=== PATIENT | female | born 1950 | race Caucasian/White ===

== ENCOUNTER 2016-10-30 08:32 | Emergency (ER) | payer OTHER ==
[~2016-10-30] VITALS: Ht 162.6 cm; Wt 45.0 kg
[2016-10-30] VITALS (7 sets, daily range): BP systolic 154–194; BP diastolic 75–93; PULSE 74–91; RESP 13–24; TEMP 97.5; O2SAT 96–99
[2016-10-30 09:24] LABS: BASOPHIL # 0.1 TH/MM3 (0-0.2); BASOPHIL % 0.6 % (0.0-2.0); EOSINOPHIL # 0.1 TH/MM3 (0-0.4); EOSINOPHIL % 0.5 % (0.0-4.0); HEMATOCRIT 44.1 % (35.0-46.0); HEMO FLAGS DIFF FINAL; LYMPH % 10.8 % (9.0-44.0); LYMPHOCYTE # 1.2 TH/MM3 (1.0-4.8); MEAN CELL VOLUME 89.6 FL (80.0-100.0); MEAN CORPUSCULAR HEMOGLOBIN 30.4 PG (27.0-34.0); MEAN CORPUSCULAR HGB CONC 33.9 % (32.0-36.0); MONO % 4.4 % (0.0-8.0); NEUT % 83.7 % (16.0-70.0); PLATELET COUNT 307 TH/MM3 (150-450); RED BLOOD COUNT 4.92 MIL/MM3 (4.00-5.30); RED CELL DISTRIBUTION WIDTH 13.4 % (11.6-17.2); WHITE BLOOD COUNT 10.8 TH/MM3 (4.0-11.0)
[2016-10-30 09:34] LABS: BACTERIA, URINE RARE /hpf; BLOOD, URINE SMALL (NEG); COMMENT (UR) CULT NOT INDICATED; CULTURE IF INDICATED CULT NOT INDICATED; GLUCOSE,URINE NEG (NEG); KETONE, URINE TRACE mg/dL (NEG); NITRITE,URINE NEG (NEG); PH, URINE 6.5 (5.0-8.5); SQUAMOUS EPITHELIAL CELL URINE 5 /hpf (0-5); URINE COLOR YELLOW (YELLW/STRAW)
[2016-10-30 09:49] LABS: ANION GAP 7 MEQ/L (5-15); AST (GOT) 21 U/L (15-37); BICARBONATE 28.6 MEQ/L (21.0-32.0); BLOOD UREA NITROGEN 7 MG/DL (7-18); CHLORIDE 97 MEQ/L (98-107); GLOMERULAR FILTRATION RATE 116 ML/MIN (>89); POTASSIUM 4.1 MEQ/L (3.5-5.1); SODIUM (NA) 133 MEQ/L (136-145)
[2016-10-30 09:51] LABS: ALT (GPT) 21 U/L (10-53)
[2016-10-30 09:52] LABS: ALKALINE PHOSPHATASE 72 U/L (45-117); TOTAL BILIRUBIN ADULT 0.4 MG/DL (0.2-1.0)
--- NOTE | 2016-10-30 10:11 | PD ---
HPI Chief Complaint: GI Complaint Time Seen by Provider: 10:03 Travel History International Travel<30 days: No Contact w/Intl Traveler<30days: No Traveled to known affect area: No History of Present Illness HPI PATIENT WOKE UP TODAY FEELING NAUSEA, NONRADIATING, CRAMPY ABD PAIN, 9/10, DIARRHEA, DIFFUSE ABD PAIN, NO ALLEVIATING/ AGGRAVATING FACTORS. PFSH Past Medical History Medical History: Denies Significant Hx Diminished Hearing: No ?: Not : 2 Para: 1 Miscarriage: 1 Past Surgical History Surgical History: No Previous Surgery Social History Alcohol Use: Yes (a few beers daily) Tobacco Use: Yes (1/2 ppd) Substance Use: No Allergies-Medications (Allergen,Severity, Reaction): Coded Allergies: No Known Allergies (Unverified , 10/30/16) Reported Meds & Prescriptions Reported Meds & Active Scripts Active Zofran Odt (Ondansetron Odt) 4 Mg Tab 4 Mg SL Q6HR PRN Percocet (Oxycodone-Acetaminophen) 5-325 mg Tab 1 Tab PO Q6H PRN Flagyl (Metronidazole) 500 Mg Tab 500 Mg PO TID Ciprofloxacin (Ciprofloxacin HCl) 500 Mg Tab 500 Mg PO BID Review of Systems Except as stated in HPI: all other systems reviewed are Neg Gastrointestinal: Positive: Nausea, Abdominal Pain Physical Exam Narrative GENERAL: SKIN: Warm and dry. HEAD: Atraumatic. Normocephalic. EYES: Pupils equal and round. No scleral icterus. No injection or drainage. ENT: No nasal bleeding or discharge. Mucous membranes pink and moist. NECK: Trachea midline. No JVD. CARDIOVASCULAR: Regular rate and rhythm. RESPIRATORY: No accessory muscle use. Clear to auscultation. Breath sounds equal bilaterally. GASTROINTESTINAL: Abdomen soft, DIFFUSELY TTP, nondistended, NO REBOUND/GUARDING /RIGIDITY MUSCULOSKELETAL: Extremities without clubbing, cyanosis, or edema. No obvious deformities. NEUROLOGICAL: Awake and alert. No obvious cranial nerve deficits. Motor grossly within normal limits. Five out of 5 muscle strength in the arms and legs. Normal speech. PSYCHIATRIC: Appropriate mood and affect; insight and judgment normal. Data Data Last Documented VS Vital Signs Date Time Temp Pulse Resp B/P (MAP) Pulse Ox O2 Delivery O2 Flow Rate FiO2 10/30/16 13:22 91 22 178/77 (110) 96 Room Air 10/30/16 08:35 97.5 Orders Orders Complete Blood Count With Diff (10/30/16 08:37) Comprehensive Metabolic Panel (10/30/16 08:37) Urinalysis - C+S If Indicated (10/30/16 08:37) Iv Access Insert/Monitor (10/30/16 08:37) Lipase (10/30/16 08:37) Ct Abd/Pel W/O Iv Contrast (10/30/16 10:03) Ondansetron Inj (Zofran Inj) (10/30/16 10:15) Hydromorphone Pf Inj (Dilaudid Pf Inj) (10/30/16 10:15) Oral Rehydration (10/30/16 12:42) Metronidazole (Flagyl) (10/30/16 13:00) Levofloxacin (Levaquin) (10/30/16 13:00) Hydromorphone Pf Inj (Dilaudid Pf Inj) (10/30/16 13:00) Ondansetron Inj (Zofran Inj) (10/30/16 13:00) Labs Laboratory Tests Test 10/30/16 08:50 10/30/16 08:54 Urine Color YELLOW Urine Turbidity HAZY Urine pH 6.5 Urine Specific [place] 1.018 Urine Protein 30 mg/dL Urine Glucose (UA) NEG mg/dL Urine Ketones TRACE mg/dL Urine Occult Blood SMALL Urine Nitrite NEG Urine Bilirubin NEG Urine Urobilinogen LESS THAN 2.0 MG/DL Urine Leukocyte Esterase TRACE Urine RBC 2 /hpf Urine WBC 3 /hpf Urine Squamous Epithelial Cells 5 /hpf Urine Bacteria RARE /hpf Microscopic Urinalysis Comment CULT NOT INDICATED White Blood Count 10.8 TH/MM3 Red Blood Count 4.92 MIL/MM3 Hemoglobin 14.9 GM/DL Hematocrit 44.1 % Mean Corpuscular Volume 89.6 FL Mean Corpuscular Hemoglobin 30.4 PG Mean Corpuscular Hemoglobin Concent 33.9 % Red Cell Distribution Width 13.4 % Platelet Count 307 TH/MM3 Mean Platelet Volume 7.7 FL Neutrophils (%) (Auto) 83.7 % Lymphocytes (%) (Auto) 10.8 % Monocytes (%) (Auto) 4.4 % Eosinophils (%) (Auto) 0.5 % Basophils (%) (Auto) 0.6 % Neutrophils # (Auto) 9.0 TH/MM3 Lymphocytes # (Auto) 1.2 TH/MM3 Monocytes # (Auto) 0.5 TH/MM3 Eosinophils # (Auto) 0.1 TH/MM3 Basophils # (Auto) 0.1 TH/MM3 CBC Comment DIFF FINAL Differential Comment Blood Urea Nitrogen 7 MG/DL Creatinine 0.53 MG/DL Random Glucose 148 MG/DL Total Protein 7.6 GM/DL Albumin 4.0 GM/DL Calcium Level 9.3 MG/DL Alkaline Phosphatase 72 U/L Aspartate Amino Transf (AST/SGOT) 21 U/L Alanine Aminotransferase (ALT/SGPT) 21 U/L Total Bilirubin 0.4 MG/DL Sodium Level 133 MEQ/L Potassium Level 4.1 MEQ/L Chloride Level 97 MEQ/L Carbon Dioxide Level 28.6 MEQ/L Anion Gap 7 MEQ/L Estimat Glomerular Filtration Rate 116 ML/MIN Lipase 173 U/L [facility] Medical Decision Making Medical Screen Exam Complete: Yes Emergency Medical Condition: Yes Medical Record Reviewed: Yes Differential Diagnosis APPY V UTI V ENTERITIS Narrative Course PATIENT FOUND TO HAVE NO LEUKOCYTOSIS BUT NEUTROPHILIA, ALSO HAS NL ELECTROLYTES /RENAL AND LIVER ACTIVITY...CT SUGGEST ENTERITIS WITH MILD ILEUS , PT TOLERATED PO CHALLENGE WILL D/C HOME ON PO ABX Diagnosis Primary Impression: Bacterial gastroenteritis Patient Instructions: Enteritis (ED), General Instructions Scripts Ondansetron Odt (Zofran Odt) 4 Mg Tab 4 MG SL Q6HR Y for Nausea/Vomiting, #20 TAB 0 Refills Prov: Javier Toribio MD 10/30/16 Oxycodone-Acetaminophen (Percocet) 5-325 mg Tab 1 TAB PO Q6H Y for PAIN, #12 TAB 0 Refills Prov: Javier Toribio MD 10/30/16 Metronidazole (Flagyl) 500 Mg Tab 500 MG PO TID for Infection, #21 TAB 0 Refills Prov: Javier Toribio MD 10/30/16 Ciprofloxacin (Ciprofloxacin) 500 Mg Tab 500 MG PO BID for Infection, #14 TAB 0 Refills Prov: Javier Toribio MD 10/30/16 Disposition: 01 DISCHARGE HOME Condition: Stable Javier Toribio MD Oct 30, 2016 10:11
[2016-10-30] MEDS ORDERED: ONDANSETRON HCL 4 MG/2 ML VIAL IVP ONE (10:15)
[2016-10-30] MEDS ORDERED: HYDROmorphone HCL PF 1 MG/ML VIAL IVS ONE (10:15)
--- NOTE | 2016-10-30 11:20 | RADRPT ---
EXAM DATE/TIME: 10/30/2016 11:04 [facility] COMPARISON: No previous studies available for comparison. INDICATIONS : Abdomen pain. ORAL CONTRAST: No oral contrast ingested. RADIATION DOSE: 4.50 CTDIvol (mGy) MEDICAL HISTORY : None SURGICAL HISTORY : None. ENCOUNTER: Initial ACUITY: 1 day PAIN SCALE: 10/10 LOCATION: Bilateral abdomen. TECHNIQUE: Volumetric scanning of the abdomen and pelvis was performed. Using automated exposure control and ad justment of the mA and/or kV according to patient size, radiation dose was kept as low as reasonably achievable to obtain optimal diagnostic quality images. DICOM format image data is available electro nically for review and comparison. FINDINGS: LOWER LUNGS: The visualized lower lungs are clear. LIVER: Homogeneous density without lesion. There is no dilation of the biliary tree. No calcified gallston es. SPLEEN: Normal size without lesion. PANCREAS: Within normal limits. KIDNEYS: Normal in size and shape. There is no mass, stone, or hydronephrosis. ADRENAL GLANDS: Mild prominence left adrenal gland. VASCULAR: There is no aortic aneurysm. BOWEL/MESENTERY: There are some dilated fluid-filled small bowel loops in the anterior abdomen. There are some slight inflammatory changes in the right lower quadrant however the appendix appears normal and contains air . There is minimal fluid in the pelvis. Diverticulosis of the sigmoid colon. ABDOMINAL WALL: Within normal limits. RETROPERITONEUM: There is no lymphadenopathy. BLADDER: No wall thickening or mass. REPRODUCTIVE: Within normal limits. INGUINAL: There is no lymphadenopathy or hernia. MUSCULOSKELETAL: Within normal limits for patient age. CONCLUSION: 1. There are some inflammatory changes the right lower quadrant however the appendix appears normal. Some dilated small bowel loops are seen anteriorly, early obstruction is in the differential. 2. Diverticulosis of the sigmoid colon. 3. Small amount of pelvic free fluid. Luis E Robin MD on October 30, 2016 at 11:13 Board Certified Radiologist. This report was verified electronically.
[2016-10-30] MEDS ORDERED: CIPR500T2 PO (12:53)
[2016-10-30] MEDS ORDERED: ZOFR4TAB3 SL (12:53)
[2016-10-30] MEDS ORDERED: PERC5TAB12 PO (12:53)
[2016-10-30] MEDS ORDERED: METR-1 PO (12:53)
[2016-10-30] MEDS ORDERED: ONDANSETRON HCL 4 MG/2 ML VIAL IV PUSH ONE (13:00)
[2016-10-30] MEDS ORDERED: metroNIDAZOLE 500 MG TAB PO ONE (13:00)
[2016-10-30] MEDS ORDERED: HYDROmorphone HCL PF 1 MG/ML VIAL IV PUSH ONE (13:00)
[2016-10-30] MEDS ORDERED: LEVOFLOXACIN 500 MG TAB PO ONE (13:00)
[2016-10-30] MEDS ORDERED: CODE30TA2 PO (15:01)
== END 2016-10-30 15:12 | disposition home or self-care (01) ==
LOC: NEPD 08:32
DX: A04.9 Bacterial intestinal infection, unspecified (principal); F17.210 Nicotine dependence, cigarettes, uncomplicated
CPT/HCPCS: 74176; 80053; 81001; 83690; 85025; 96374; 96375; 96376; 99285; J1170; J2405

== ENCOUNTER 2016-11-02 04:34 | Inpatient (IN) | payer OTHER ==
[2016-11-02] VITALS (9 sets, daily range): BP systolic 117–151; BP diastolic 58–76; PULSE 84–99; RESP 15–30; TEMP 96.1–98.1; O2SAT 92–98
[~2016-11-02] VITALS: Ht 162.6 cm; Wt 47.0 kg
[~2016-11-02 04:34] MED LIST: CIPR500T2 PO; CODE30TA2 PO; METR-1 PO; PERC5TAB12 PO; ZOFR4TAB3 SL
[2016-11-02] MEDS ORDERED: SODIUM CHLORID 0.9% 500 ML INJ 500 ML IV ONE (05:15)
[2016-11-02] MEDS ORDERED: MORPHINE SULFATE 4 MG/ML INJ IV PUSH ONE (05:15)
[2016-11-02] MEDS ORDERED: PIPERACIL-TAZO 3.375 GM PREMIX 50 ML IV ONE (05:15)
[2016-11-02] MEDS ORDERED: ONDANSETRON HCL 4 MG/2 ML VIAL IVP ONE (05:15)
[2016-11-02] MEDS ORDERED: SODIUM CHLORIDE 0.9% FLUSH 10 ML FLUSH IV FLUSH PRN ×2 (05:15→07:15)
[2016-11-02] MEDS ORDERED: SODIUM CHLOR 0.9% 1000 ML INJ 1,000 ML IV SCH (05:15)
[2016-11-02 05:51] LABS: AUTOMATED NEUTROPHIL # 14.5 TH/MM3 (1.8-7.7); BASOPHIL % 0.3 % (0.0-2.0); EOSINOPHIL % 0.1 % (0.0-4.0); HEMATOCRIT 53.4 % (35.0-46.0); HEMO FLAGS DIFF FINAL; LYMPH % 6.4 % (9.0-44.0); LYMPHOCYTE # 1.1 TH/MM3 (1.0-4.8); MEAN CORPUSCULAR HEMOGLOBIN 29.9 PG (27.0-34.0); MEAN CORPUSCULAR HGB CONC 32.8 % (32.0-36.0); MONO % 5.4 % (0.0-8.0); NEUT % 87.8 % (16.0-70.0); PLATELET COUNT 309 TH/MM3 (150-450); RED BLOOD COUNT 5.86 MIL/MM3 (4.00-5.30); RED CELL DISTRIBUTION WIDTH 13.7 % (11.6-17.2); WHITE BLOOD COUNT 16.5 TH/MM3 (4.0-11.0)
--- NOTE | 2016-11-02 05:56 | PD ---
HPI Chief Complaint: Abdominal Pain Time Seen by Provider: 05:15 Travel History International Travel<30 days: No Contact w/Intl Traveler<30days: No Traveled to known affect area: No History of Present Illness HPI 66-year-old female presents to the emergency department by private transportation for complaint of severe abdominal pain with abdominal distention. Patient's had nausea and vomiting. Patient denies bowel movement since Sunday. Patient was seen in the emergency department on Sunday and diagnosed with a bacterial gastroenteritis and started on Flagyl and Cipro. Patient states that she did take the Flagyl and Cipro as prescribed although she has had vomiting and has tried to take the pain medication prescribed but has not been was tolerate medications and vomited most of what she is attempted to take by mouth. Patient does not purchased the Zofran as she could not afford the prescription. Patient denies fever or chills. Patient denies hematemesis coffee-ground emesis or feculent emesis. Patient denies any previous abdominal surgery. Review of medical records indicates patient underwent CT abdomen and pelvis with IV contrast Sunday at which time imaging showed inflammatory changes in the right lower quadrant but the appendix appeared normal. Patient rates her pain 9/10 in intensity. PFSH Past Medical History Narrative Medical Tobaccoism Medical History: Denies Significant Hx Diminished Hearing: No Tetanus Vaccination: Unknown ?: Not : 2 Para: 1 Miscarriage: 1 Past Surgical History Surgical History: No Previous Surgery Social History Alcohol Use: No Tobacco Use: No Substance Use: No Allergies-Medications (Allergen,Severity, Reaction): Coded Allergies: No Known Allergies (Unverified , 11/02/16) Reported Meds & Prescriptions Reported Meds & Active Scripts Active Codeine-Acetaminophen 30-300 mg Tab 1 Tab PO Q4H PRN Percocet (Oxycodone-Acetaminophen) 5-325 mg Tab 1 Tab PO Q6H PRN Flagyl (Metronidazole) 500 Mg Tab 500 Mg PO TID Ciprofloxacin (Ciprofloxacin HCl) 500 Mg Tab 500 Mg PO BID Review of Systems Except as stated in HPI: all other systems reviewed are Neg General / Constitutional: No: Fever, Chills HENT: No: Congestion Cardiovascular: No: Chest Pain or Discomfort Respiratory: No: Shortness of Breath Gastrointestinal: Positive: Nausea, Vomiting, Abdominal Pain, Changes in Bowel Habits, Loss of Appetite, No: Hematemesis, Hematochezia Genitourinary: No: Dysuria, Flank Pain Musculoskeletal: No: Myalgias, Arthralgias Skin: No Rash Neurologic: No: Weakness Psychiatric: No: Anxiety Endocrine: No: Heat Intolerance Hematologic/Lymphatic: No: Easy Bruising Physical Exam Narrative GENERAL: Thin female in obvious discomfort; no respiratory distress; GCS 15 SKIN: Warm and dry. HEAD: Normocephalic. EYES: No scleral icterus. No injection or drainage. NECK: Supple, trachea midline. No JVD or lymphadenopathy. CARDIOVASCULAR: Regular rate and rhythm without murmurs, gallops, or rubs. RESPIRATORY: Breath sounds equal bilaterally. No accessory muscle use. GASTROINTESTINAL: Abdomen firm, diffusely tender, distended. MUSCULOSKELETAL: No cyanosis, or edema. BACK: Nontender without obvious deformity. No CVA tenderness. Data Data Last Documented VS Vital Signs Date Time Temp Pulse Resp B/P (MAP) Pulse Ox O2 Delivery O2 Flow Rate FiO2 11/02/16 06:02 30 98 Room Air 11/02/16 05:09 98.1 99 Orders Orders Complete Blood Count With Diff (11/02/16 05:15) Comprehensive Metabolic Panel (11/02/16 05:15) Lipase (11/02/16 05:15) Lactic Acid (11/02/16 05:15) Prothrombin Time / Inr (Pt) (11/02/16 05:15) Act Partial Throm Time (Ptt) (11/02/16 05:15) Urinalysis - C+S If Indicated (11/02/16 05:15) Ct Abd/Pel W Iv Contrast(Rout) (11/02/16 05:15) Iv Access Insert/Monitor (11/02/16 05:15) Ecg Monitoring (11/02/16 05:15) Oximetry (11/02/16 05:15) Morphine Inj (Morphine Inj) (11/02/16 05:15) Ondansetron Inj (Zofran Inj) (11/02/16 05:15) Sodium Chloride 0.9% Flush (Ns Flush) (11/02/16 05:15) Chest, Single Ap (11/02/16 05:15) Piperacil-Tazo 3.375 Gm Premix (Zosyn 3. (11/02/16 05:15) Blood Culture (11/02/16 05:15) Sodium Chlor 0.9% 1000 Ml Inj (Ns 1000 M (11/02/16 05:15) Sodium Chlorid 0.9% 500 Ml Inj (Ns 500 M (11/02/16 05:15) Iohexol 350 Inj (Omnipaque 350 Inj) (11/02/16 06:25) Ng Gastric Tube Insert/Monitor (11/02/16 06:38) Place Ng Tube To Low [place] (11/02/16 06:38) Labs Laboratory Tests Test 11/02/16 05:30 White Blood Count 16.5 TH/MM3 Red Blood Count 5.86 MIL/MM3 Hemoglobin 17.5 GM/DL Hematocrit 53.4 % Mean Corpuscular Volume 91.0 FL Mean Corpuscular Hemoglobin 29.9 PG Mean Corpuscular Hemoglobin Concent 32.8 % Red Cell Distribution Width 13.7 % Platelet Count 309 TH/MM3 Mean Platelet Volume 7.9 FL Neutrophils (%) (Auto) 87.8 % Lymphocytes (%) (Auto) 6.4 % Monocytes (%) (Auto) 5.4 % Eosinophils (%) (Auto) 0.1 % Basophils (%) (Auto) 0.3 % Neutrophils # (Auto) 14.5 TH/MM3 Lymphocytes # (Auto) 1.1 TH/MM3 Monocytes # (Auto) 0.9 TH/MM3 Eosinophils # (Auto) 0.0 TH/MM3 Basophils # (Auto) 0.0 TH/MM3 CBC Comment DIFF FINAL Differential Comment Prothrombin Time 10.5 SEC Prothromb Time International Ratio 1.0 RATIO Activated Partial Thromboplast Time 19.2 SEC Blood Urea Nitrogen 16 MG/DL Creatinine 0.90 MG/DL Random Glucose 157 MG/DL Albumin 3.8 GM/DL Calcium Level 10.2 MG/DL Aspartate Amino Transf (AST/SGOT) 23 U/L Alanine Aminotransferase (ALT/SGPT) 16 U/L Sodium Level 126 MEQ/L Potassium Level 5.0 MEQ/L Chloride Level 85 MEQ/L Carbon Dioxide Level 29.6 MEQ/L Anion Gap 11 MEQ/L Estimat Glomerular Filtration Rate 63 ML/MIN Lactic Acid Level 2.2 mmol/L Lipase 133 U/L [facility] Medical Decision Making Medical Screen Exam Complete: Yes Emergency Medical Condition: Yes Medical Record Reviewed: Yes Interpretation(s) Last Impressions Chest X-Ray 11/02/1615 Signed Impressions: Service Date/Time: October 05:42 - CONCLUSION: 1. No focal consolidation. Distended loops of bowel in the upper abdomen. Radu Montilla MD Abdomen/Pelvis CT 11/02/1615 Signed Impressions: Service Date/Time: October 06:11 - CONCLUSION: 1. Distal small bowel obstruction with multiple air-fluid levels and mild ascites. No free air. Radu Montilla MD CBC & BMP Diagram 11/02/16 05:30 Albumin 3.8, Calcium Level 10.2 H, Aspartate Amino Transf (AST/SGOT) 23, Alanine Aminotransferase (ALT/SGPT) 16 Vital Signs Date Time Temp Pulse Resp B/P (MAP) Pulse Ox O2 Delivery O2 Flow Rate FiO2 11/02/16 06:02 30 98 Room Air 11/02/16 05:09 98.1 99 19 151/75 (100) 98 Room Air 11/02/16 04:36 97.0 86 18 133/76 (95) 97 Room Air Differential Diagnosis Abdominal pain, bowel obstruction, perforated viscus, appendicitis, peritonitis Narrative Course IV access obtained specimens collected and sent for resulting patient given Zosyn 3.375 g IV piggyback times one dose presumptively and stat upright chest x -ray was performed Chest x-ray reveals no subdiaphragmatic free air does reveal multiple dilated loops of bowel @ 06:03 CT called to take patient to CT imaging using Cr from 2 days ago At 6:[address] abdomen and pelvis with IV contrast reading per radiologist positive for distal small bowel obstruction small amount of free fluid no free air identified; patient continues to remain quite tender and quite distended concern for acute appendicitis or perforated viscus is not identified on CT imaging at this time for concerning due to prior history of inflammatory stranding right lower quadrant with a normal-appearing appendix. Therefore call placed to general surgery. Patient's case discussed with on-call surgeon Dr. Issa who requests patient be admitted to medicine service for complications from probable possible perforated appendix with secondary small bowel obstruction. Patient has not been seen by primary care provider 5 years she is to follow-up with Dr. Langston. Patient takes no prescription medications other than recently prescribed Cipro and Flagyl along with pain medication. Patient at this time is aware that she has been diagnosed with a small bowel obstruction and that she will need to be admitted. Patient has received IV fluid maintenance fluid as well as IV fluid bolus and also presumptive coverage with Zosyn 3.375 g IV piggyback. Sepsis Criteria SIRS Criteria (2 or more): Heart rate over 90, WBC > 59897, < 4000 or > 10% bands Sepsis Criteria (SIRS+source): Infect source susp/known (GI) Physician Communication Physician Communication call placed to gen surgery --discussed with Dr Issa --suspectd sbo related to perforated appy --admiot to medicine with consult to gen surgery Rina Greene MD Nov 02, 2016 05:56
[2016-11-02 06:04] LABS: APTT (PATIENT) 19.2 SEC (24.3-30.1); PROTHROMBIN TIME - PATIENT 10.5 SEC (9.8-11.6)
--- NOTE | 2016-11-02 06:13 | RADRPT ---
EXAM DATE/TIME: 11/02/2016 05:42 [facility] COMPARISON: No previous studies available for comparison. INDICATIONS : Abdominal pain for five days. MEDICAL HISTORY : None. SURGICAL HISTORY : None. ENCOUNTER: Subsequent ACUITY: 4 - 6 days PAIN SCORE: 10/10 LOCATION: Bilateral all quadrants abdomen FINDINGS: A single view of the chest demonstrates the lungs to be symmetrically aerated without evidence of mas s, infiltrate or effusion. The cardiomediastinal contours are unremarkable. Distended bowel in the u pper abdomen. Osseous structures are intact. CONCLUSION: 1. No focal consolidation. Distended loops of bowel in the upper abdomen. Radu Montilla MD on November 02, 2016 at 6:07 Board Certified Radiologist. This report was verified electronically.
[2016-11-02 06:18] LABS: ALT (GPT) 16 U/L (10-53); ANION GAP 11 MEQ/L (5-15); AST (GOT) 23 U/L (15-37); BICARBONATE 29.6 MEQ/L (21.0-32.0); BLOOD UREA NITROGEN 16 MG/DL (7-18); CHLORIDE 85 MEQ/L (98-107); GLOMERULAR FILTRATION RATE 63 ML/MIN (>89); SODIUM (NA) 126 MEQ/L (136-145)
[2016-11-02] MEDS ORDERED: IOHEXOL 350 MG/ML 10 ML VIAL (for RAD DIAG) IVCONTRAST ONE (06:25)
--- NOTE | 2016-11-02 06:35 | RADRPT ---
EXAM DATE/TIME: 11/02/2016 06:11 [facility] COMPARISON: CT ABDOMEN & PELVIS W/O CONTRAST, October 30, 2016, 11:04. INDICATIONS : Abdominal pain, bloating, vomiting and no bowel movement for four days. IV CONTRAST: 93 cc Omnipaque 350 (iohexol) IV ORAL CONTRAST: No oral contrast ingested. RADIATION DOSE: 4.52 CTDIvol (mGy) MEDICAL HISTORY : None SURGICAL HISTORY : None. ENCOUNTER: Initial ACUITY: 4 - 6 days PAIN SCALE: 10/10 LOCATION: All quadrants. TECHNIQUE: Volumetric scanning of the abdomen and pelvis was performed. Using automated exposure control and ad justment of the mA and/or kV according to patient size, radiation dose was kept as low as reasonably achievable to obtain optimal diagnostic quality images. DICOM format image data is available electro nically for review and comparison. FINDINGS: Compare October 30. Lung bases are clear. No acute findings in the liver, spleen, kidneys or pancreas. There is nodular enlargement of both adrenal glands, stable. Compared with the prior exam there is development of abnormal distention of small bowel with multiple air-fluid levels present. There is some decompression of several distal small bowel loops and colon is decompressed. The findings are characteristic of a small bowel obstruction distally. There is a sm all amount of ascites, especially around the liver. There is also mild pelvic ascites. No acute bony findings. CONCLUSION: 1. Distal small bowel obstruction with multiple air-fluid levels and mild ascites. No free air. Radu Montilla MD on November 02, 2016 at 6:25 Board Certified Radiologist. This report was verified electronically.
[2016-11-02] MEDS ORDERED: SODIUM CHLOR 0.9% 1000 ML INJ 1,000 ML IV ONE (06:45)
[2016-11-02 06:52] LABS: ALKALINE PHOSPHATASE 79 U/L (45-117); TOTAL BILIRUBIN ADULT 0.9 MG/DL (0.2-1.0)
[2016-11-02] MEDS ORDERED: NALOXONE HCL 0.4 MG/ML AMP IV PRN (07:15)
[2016-11-02] MEDS ORDERED: SODIUM CHLORIDE 0.9% FLUSH 10 ML FLUSH IVF PRN (07:15)
[2016-11-02] MEDS: SODIUM CHLOR 0.9% 1000 ML INJ 1,000 ML IV SCH ×2 (07:32→15:48)
--- NOTE | 2016-11-02 08:51 | HHI.HP ---
[facility] No Primary Care Physician Admission Diagnosis SBO; sirs/sepsis Diagnoses: Chief Complaint: Abdominal pain, nausea vomiting Travel History International Travel<30 Days: No Contact w/Intl Traveler <30 Da: No Traveled to Known Affected Are: No Sepsis Criteria SIRS Criteria (2 or more): RR > 20 or PaCO2 < 32, WBC > 41048, < 4000 or > 10 % bands Sepsis Criteria (SIRS+source): Infect source susp/known Severe Sepsis (+one): Lactate >2 Criteria Outcome: Meets severe sepsis criteria History of Present Illness 66-year-old white female with no significant past history we present about emergency room due to 5 day history of worsening abdominal pain and now with distention. She was seen 4 days ago when she started having mid lower epigastric pain and was diagnosed with gastroenteritis and sent home on antiemetics, antibiotics and pain medication. Since then, patient continued to have fever along with having no bowel movements for the past 4 days. She's had nonbilious emesis, persistent nausea to the point where she was having hard time keeping both liquid and solids down. She describes her pain as periumbilical sharp stabbing and worsening since Sunday. She states that she had taken her interlocks Flagyl and Cipro along with pain medication but did not give her antiemetics filled. She denies any symptoms of dysuria or urinary frequency or urgency. She denies any unusual food intake for the past 2 weeks. Review of Systems Constitutional: COMPLAINS OF: Fever, Change in appetite, DENIES: Fatigue, Weight gain, Weight loss, Chills Endocrine: DENIES: Heat/cold intolerance Eyes: DENIES: Blurred vision, Eye pain, Vision loss Ears, nose, mouth, throat: DENIES: Hearing loss, Nasal discharge, Throat pain, Ear Pain, Sinus Pain Respiratory: DENIES: Cough, Shortness of breath Cardiovascular: DENIES: Chest pain, Palpitations, Dyspnea on Exertion, Lower Extremity Edema Gastrointestinal: COMPLAINS OF: Abdominal pain, Constipation, Nausea, Vomiting , DENIES: Black stools, Bloody stools, Diarrhea Genitourinary: DENIES: Dysuria Musculoskeletal: DENIES: Joint pain, Muscle aches, Stiffness Integumentary: DENIES: Rash Hematologic/lymphatic: DENIES: Bruising, Lymphadenopathy Immunologic/allergic: DENIES: Eczema Neurologic: DENIES: Headache, Localized weakness, Paresthesias Psychiatric: DENIES: Anxiety, Depression, Suicidal Ideation Past Family Social History Past Medical History None Past Surgical History Cataracts Reported Medications Codeine-Acetaminophen 30-300 mg Tab 1 Tab PO Q4H PRN Percocet (Oxycodone-Acetaminophen) 5-325 mg Tab 1 Tab PO Q6H PRN Flagyl (Metronidazole) 500 Mg Tab 500 Mg PO TID Ciprofloxacin (Ciprofloxacin HCl) 500 Mg Tab 500 Mg PO BID Allergies: Coded Allergies: No Known Allergies (Unverified , 11/02/16) Family History Mom has dementia and diabetes mellitus Social History Smokes one pack of cigarettes per day, has not smoked since Sunday. Drinks 2-3 beers daily. Has not drank beer for the past 5 days. Physical Exam Vital Signs Vital Signs Date Time Temp Pulse Resp B/P (MAP) Pulse Ox O2 Delivery O2 Flow Rate FiO2 11/02/16 07:48 84 20 117/58 (77) 11/02/16 06:02 30 98 Room Air 11/02/16 05:09 98.1 99 19 151/75 (100) 98 Room Air 11/02/16 04:36 97.0 86 18 133/76 (95) 97 Room Air Physical Exam GENERAL: This is a then, well-developed patient, in no apparent distress. SKIN: No rashes, ecchymoses or lesions. Cool and dry. HEAD: Atraumatic. Normocephalic. No temporal or scalp tenderness. EYES: Pupils equal round and reactive. Extraocular motions intact. No scleral icterus. No injection or drainage. Wearing her glasses ENT: Nose without bleeding, purulent drainage or septal hematoma. Throat without erythema, tonsillar hypertrophy or exudate. Uvula midline. Airway patent. NECK: Trachea midline. No JVD or lymphadenopathy. Supple, nontender, no meningeal signs. CARDIOVASCULAR: Tachycardic with regular rhythm without murmurs rubs or gallops RESPIRATORY: Clear to auscultation. Breath sounds equal bilaterally. No wheezes , rales, or rhonchi. GASTROINTESTINAL: Abdomen soft, periumbilical tenderness with no rebound guarding, mild distention, hypoactive bowel sounds MUSCULOSKELETAL: Extremities without clubbing, cyanosis, or edema. No joint tenderness, effusion, or edema noted. No calf tenderness. Negative Homans sign bilaterally. NEUROLOGICAL: Awake and alert to person place time and situation. Cranial nerves II through XII intact. Motor and sensory grossly within normal limits. Five out of 5 muscle strength in all muscle groups. Normal speech. Laboratory Laboratory Tests Test 11/02/16 05:30 11/02/16 06:37 White Blood Count 16.5 Red Blood Count 5.86 Hemoglobin 17.5 Hematocrit 53.4 Mean Corpuscular Volume 91.0 Mean Corpuscular Hemoglobin 29.9 Mean Corpuscular Hemoglobin Concent 32.8 Red Cell Distribution Width 13.7 Platelet Count 309 Mean Platelet Volume 7.9 Neutrophils (%) (Auto) 87.8 Lymphocytes (%) (Auto) 6.4 Monocytes (%) (Auto) 5.4 Eosinophils (%) (Auto) 0.1 Basophils (%) (Auto) 0.3 Neutrophils # (Auto) 14.5 Lymphocytes # (Auto) 1.1 Monocytes # (Auto) 0.9 Eosinophils # (Auto) 0.0 Basophils # (Auto) 0.0 CBC Comment DIFF FINAL Differential Comment Prothrombin Time 10.5 Prothromb Time International Ratio 1.0 Activated Partial Thromboplast Time 19.2 Lactic Acid Level 2.2 Blood Urea Nitrogen 16 Creatinine 0.90 Random Glucose 157 Total Protein 8.5 Albumin 3.8 Calcium Level 10.2 Alkaline Phosphatase 79 Aspartate Amino Transf (AST/SGOT) 23 Alanine Aminotransferase (ALT/SGPT) 16 Total Bilirubin 0.9 Sodium Level 126 Potassium Level 5.0 Chloride Level 85 Carbon Dioxide Level 29.6 Anion Gap 11 Estimat Glomerular Filtration Rate 63 Lipase 133 Date/Time Source Procedure Growth Status 11/02/16 05:30 Blood Peripheral Aerobic Blood Culture Pending Received 11/02/16 05:30 Blood Peripheral Anaerobic Blood Culture Pending Received Result Diagram: 11/02/1652911/02/1637 Imaging Last Impressions Chest X-Ray 11/02/16514 Signed Impressions: Service Date/Time: October 05:42 - CONCLUSION: 1. No focal consolidation. Distended loops of bowel in the upper abdomen. Radu Montilla MD Abdomen/Pelvis CT 11/02/16514 Signed Impressions: Service Date/Time: October 06:11 - CONCLUSION: 1. Distal small bowel obstruction with multiple air-fluid levels and mild ascites. No free air. MD Delano Reyes VTE Risk Assessment Capemperatriz VTE Risk Assessment: Mod/High Risk (score >= 2) Caprini Risk Assessment Model Point Value = 1 Point Value = 2 Point Value = 3 Point Value = 5 Age 41-60 Minor surgery BMI > 25 kg/m2 Swollen legs Varicose veins or History of unexplained or recurrent spontaneous Oral contraceptives or hormone replacement Sepsis (< 1 month) Serious lung disease, including pneumonia (< 1 month) Abnormal pulmonary function Acute myocardial infarction Congestive heart failure (< 1 month) History of inflammatory bowel disease Medical patient at bed rest Age 61-74 Arthroscopic surgery Major open surgery (> 45 min) Laparoscopic surgery (> 45 min) Malignancy Confined to bed (> 72 hours) Immobilizing plaster cast Central venous access Age >= 75 History of VTE Family history of VTE Factor V Leiden Prothrombin [id number] Lupus anticoagulant Anticardiolipin antibodies Elevated serum homocysteine Heparin-induced thrombocytopenia Other congenital or acquired thrombophilia Stroke (< 1 month) Elective arthroplasty Hip, pelvis, or leg fracture Acute spinal cord injury (< 1 month) Prophylaxis Regimen Total Risk Factor Score Risk Level Prophylaxis Regimen 0-1 Low Early ambulation 2 Moderate Order ONE of the following: *Sequential Compression Device (SCD) *Heparin 5000 units SQ BID 3-4 Higher Order ONE of the following medications: *Heparin 5000 units SQ TID *Enoxaparin/Lovenox 40 mg SQ daily (WT < 150 kg, CrCl > 30 mL/min) *Enoxaparin/Lovenox 30 mg SQ daily (WT < 150 kg, CrCl > 10-29 mL/min) *Enoxaparin/Lovenox 30 mg SQ BID (WT < 150 kg, CrCl > 30 mL/min) AND/OR *Sequential Compression Device (SCD) 5 or more Highest Order ONE of the following medications: *Heparin 5000 units SQ TID (Preferred with Epidurals) *Enoxaparin/Lovenox 40 mg SQ daily (WT < 150 kg, CrCl > 30 mL/min) *Enoxaparin/Lovenox 30 mg SQ daily (WT < 150 kg, CrCl > 10-29 mL/min) *Enoxaparin/Lovenox 30 mg SQ BID (WT < 150 kg, CrCl > 30 mL/min) AND *Sequential Compression Device (SCD) Assessment and Plan Problem List: (1) Severe sepsis ICD Code: A41.9 - Sepsis, unspecified organism; R65.20 - Severe sepsis without septic shock Status: Acute (2) Hyponatremia ICD Code: E87.1 - Hypo-osmolality and hyponatremia Status: Acute (3) SBO (small bowel obstruction) ICD Code: K56.69 - Other intestinal obstruction Assessment and Plan 1. Severe sepsis present on admission with leukocytosis and tachypnea with suspected inflammatory bowel with possibly perforated appendix leading to small bowel obstruction. Lactic acid 2.2 with repeat levels pending. IV fluid hydration, blood cultures pending, IV antibiotics Zosyn to be initiated. 2. Suspect small bowel obstruction with possible inflammatory bowel rule out perforated appendix- supportive care, bowel rest with NG tube to low intermittent suction, general surgery consultation. Pain control. Anti-medics. 3. Hyponatremia due to hypovolemia and interactive nausea or vomiting- IV fluid hydration. 4. DVT prophylaxis SCDs, anticoagulation on hold until surgical evaluation. Physician Certification 2 Midnight Certification Type: Admission for Inpatient Services Order for Inpatient Services The services are ordered in accordance with Medicare regulations or non- Medicare payer requirements, as applicable. In the case of services not specified as inpatient-only, they are appropriately provided as inpatient services in accordance with the 2-midnight benchmark. Estimated LOS (days): 4 days is the estimated time the patient will need to remain in the hospital, assuming treatment plan goals are met and no additional complications. Post-Hospital Plan: Home Sarah Goins MD Nov 02, 2016 08:51
[2016-11-02] MEDS ORDERED: MORPHINE SULFATE 4 MG/ML INJ IV PRN (09:00)
[2016-11-02] MEDS ORDERED: ACETAMINOPHEN/HYDROcodone 325 MG/7.5 MG TAB PO PRN (09:00)
[2016-11-02] MEDS ORDERED: SODIUM CHLORIDE 0.9% FLUSH 10 ML FLUSH IV FLUSH SCH (09:00)
[2016-11-02] MEDS ORDERED: MORPHINE SULFATE 4 MG/ML INJ IV PUSH PRN (09:00)
[2016-11-02] MEDS ORDERED: ACETAMINOPHEN 325 MG TAB PO PRN (09:00)
[2016-11-02] MEDS ORDERED: ACETAMINOPHEN/HYDROcodone 325 MG/5 MG TAB PO PRN (09:00)
[2016-11-02] MEDS: SODIUM CHLORIDE 0.9% FLUSH 10 ML FLUSH IV FLUSH SCH ×2 (09:41→21:00)
--- NOTE | 2016-11-02 11:06 | EKG ---
Date Performed: 11/02/2016 Time Performed: 07:45:06 PTAGE: 66 years EKG: Sinus rhythm WITH MARKED SINUS ARRHYTHMIA POSSIBLE LEFT ATRIAL ENLARGEMENT BORDERLINE ECG NO PREVIOUS TRACING DOCTOR: Denver Steele Interpretating Date/Time 11/02/2016 11:04:38
[2016-11-02] MEDS: PIPERACIL-TAZO 4.5 GM PREMIX 100 ML IV SCH ×3 (11:56→22:32)
[2016-11-02] MEDS ORDERED: PROPOFOL 200 MG/20 ML AMP IV ONE (12:00)
[2016-11-02] MEDS ORDERED: PHENYLEPH/NS 1000 MCG/10 ML SYR IV ONE (12:00)
[2016-11-02] MEDS ORDERED: NORMOSOL R INJ 1,000 ML IV ONE (12:00)
[2016-11-02] MEDS ORDERED: ONDANSETRON HCL 4 MG/2 ML VIAL IVP PRN (12:00)
[2016-11-02] MEDS ORDERED: ONDANSETRON HCL 4 MG/2 ML VIAL IV PUSH ONE (12:00)
--- NOTE | 2016-11-02 13:45 | PD.CONS ---
cc: Sam Issa MD [facility] Service General Surgery Consult Requested By Dr. Dominguez Reason for Consult Abdominal pain with nausea/vomiting Primary Care Physician No Primary Care Physician History of Present Illness This is a 66 year old male with no past medical history who has had abdominal pain with associated nausea and vomiting since Sunday. She came to the ED for evaluation on Sunday and a CT abdomen/pelvis scan was complete which showed inflammation in the RLQ without visualization of the appendix. She was sent home with a diagnosis of gastroenteritis and placed on PO Cipro and Flagyl. She continued to have severe abdominal pain with continuous nausea with vomiting. She has been unable to keep anything down. She feels extremely weak. She has had no relief in the pain. Her last bowel movement was Sunday which was soft brown and normal. A General Surgery consultation has been requested. Review of Systems Constitutional: COMPLAINS OF: Fatigue, Weight loss, Chills, Change in appetite Endocrine: DENIES: Polydipsia, Polyuria, Polyphagia Eyes: DENIES: Diplopia Ears, nose, mouth, throat: DENIES: Hearing loss Respiratory: DENIES: Cough Cardiovascular: DENIES: Palpitations Gastrointestinal: COMPLAINS OF: Abdominal pain, Nausea, Vomiting Genitourinary: DENIES: Urinary frequency Musculoskeletal: DENIES: Joint pain Integumentary: DENIES: Abnormal pigmentation Hematologic/lymphatic: DENIES: Bruising Immunologic/allergic: DENIES: Eczema Neurologic: DENIES: Headache, Paresthesias Psychiatric: DENIES: Mood changes, Depression, Hallucinations Past Family Social History Past Medical History None Past Surgical History Cataract surgery Reported Medications None Allergies: Coded Allergies: No Known Allergies (Unverified , 11/02/16) Active Ordered Medications Current Medications Medications (Trade) Dose Ordered Sig/Sergey Route Start Time Stop Time Status Last Admin (NS Flush) 2 ml UNSCH PRN IV FLUSH 11/02/16 05:15 Sodium Chloride 1,000 ml @ 100 mls/hr Q10H IV 11/02/16 07:10 11/02/16 07:32 (NS Flush) 2 ml UNSCH PRN IV FLUSH 11/02/16 07:15 (NS Flush) 2 ml BID IV FLUSH 11/02/16 09:00 (Zofran Inj) 4 mg Q6H PRN IVP 11/02/16 12:00 (Narcan Inj) 0.4 mg UNSCH PRN IV 11/02/16 07:15 Piperacillin Sod/ Tazobactam Sod 100 ml @ 200 mls/hr Q6H IV 11/02/16 12:00 11/02/16 11:56 (Tylenol) 650 mg Q6H PRN PO 11/02/16 09:00 (Aurora 5-325 Mg) 1 tab Q4H PRN PO 11/02/16 09:00 (Aurora 7.5-325 Mg) 1 tab Q4H PRN PO 11/02/16 09:00 (Morphine Inj) 2 mg Q3H PRN IV 11/02/16 09:00 (Morphine Inj) 4 mg Q3H PRN IV 11/02/16 09:00 Family History Noncontributory Social History Tobacco-1ppd; has not had any since Sunday EtOH- one beer daily after work; has not had any since Sunday Denies illicit drug use Physical Exam Vital Signs Vital Signs Date Time Temp Pulse Resp B/P (MAP) Pulse Ox O2 Delivery O2 Flow Rate FiO2 11/02/16 12:59 87 20 135/76 (95) 11/02/16 10:01 84 20 133/67 (89) 11/02/16 07:48 84 20 117/58 (77) 11/02/16 06:02 30 98 Room Air 11/02/16 05:09 98.1 99 19 151/75 (100) 98 Room Air 11/02/16 04:36 97.0 86 18 133/76 (95) 97 Room Air Physical Exam GENERAL: 66 year old female resting in bed in moderate distress; painful. SKIN: Warm and dry. HEAD: Atraumatic. Normocephalic. EYES: Pupils equal and round. No scleral icterus. No injection or drainage. ENT: No nasal bleeding or discharge. Mucous membranes dry. NECK: Trachea midline. CARDIOVASCULAR: Regular rate and rhythm. RESPIRATORY: No accessory muscle use. Clear to auscultation. Breath sounds equal bilaterally. No wheezing. GASTROINTESTINAL: Abdomen distended; tender to palpation in all 4 quadrants greatest in the RLQ. Hypoactive bowel sounds. No visible scars. NGT to LIWS with dark drainage. MUSCULOSKELETAL: Extremities without clubbing, cyanosis, or edema. No obvious deformities. NEUROLOGICAL: Awake and alert. No obvious cranial nerve deficits. Motor grossly within normal limits. Five out of 5 muscle strength in the arms and legs. Normal speech. PSYCHIATRIC: Appropriate mood and affect; insight and judgment normal. Laboratory Laboratory Tests Test 11/02/16 05:30 11/02/16 06:37 11/02/16 08:40 White Blood Count 16.5 Red Blood Count 5.86 Hemoglobin 17.5 Hematocrit 53.4 Mean Corpuscular Volume 91.0 Mean Corpuscular Hemoglobin 29.9 Mean Corpuscular Hemoglobin Concent 32.8 Red Cell Distribution Width 13.7 Platelet Count 309 Mean Platelet Volume 7.9 Neutrophils (%) (Auto) 87.8 Lymphocytes (%) (Auto) 6.4 Monocytes (%) (Auto) 5.4 Eosinophils (%) (Auto) 0.1 Basophils (%) (Auto) 0.3 Neutrophils # (Auto) 14.5 Lymphocytes # (Auto) 1.1 Monocytes # (Auto) 0.9 Eosinophils # (Auto) 0.0 Basophils # (Auto) 0.0 CBC Comment DIFF FINAL Differential Comment Prothrombin Time 10.5 Prothromb Time International Ratio 1.0 Activated Partial Thromboplast Time 19.2 Lactic Acid Level 2.2 2.2 Blood Urea Nitrogen 16 Creatinine 0.90 Random Glucose 157 Total Protein 8.5 Albumin 3.8 Calcium Level 10.2 Alkaline Phosphatase 79 Aspartate Amino Transf (AST/SGOT) 23 Alanine Aminotransferase (ALT/SGPT) 16 Total Bilirubin 0.9 Sodium Level 126 Potassium Level 5.0 Chloride Level 85 Carbon Dioxide Level 29.6 Anion Gap 11 Estimat Glomerular Filtration Rate 63 Lipase 133 Date/Time Source Procedure Growth Status 11/02/16 05:30 Blood Peripheral Aerobic Blood Culture Pending Received 11/02/16 05:30 Blood Peripheral Anaerobic Blood Culture Pending Received Result Diagram: 11/02/16 0530 11/02/16 0637 Imaging Last 48 hours Impressions Chest X-Ray 11/02/1615 Signed Impressions: Service Date/Time: October 05:42 - CONCLUSION: 1. No focal consolidation. Distended loops of bowel in the upper abdomen. Radu Montilla MD Abdomen/Pelvis CT 11/02/16 0515 Signed Impressions: Service Date/Time: October 06:11 - CONCLUSION: 1. Distal small bowel obstruction with multiple air-fluid levels and mild ascites. No free air. Radu Montilla MD Assessment and Plan Assessment and Plan 66 year old female with SBO; question of perforated appendicitis -NPO -NGT to LIWS -Plan for OR this afternoon -Obtain consents -Hold all anticoagulation -Thank you for this consult; We will continue to follow Attending Note - Dr. Issa Patient seen and examined; acute pain, didi. RLQ, but fairly diffuse Concern for perforated appendicitis vs. obstruction from adhesion/neoplasm GAR discussed with patient, who vocalizes understanding and agrees to proceed with surgery The exam, history, and the medical decision-making described in the above note were completed with the assistance of the mid-level provider. I reviewed and agree with the findings presented. I attest that I had a [id number] encounter with the patient on the same day, and personally performed and documented my assessment and findings in the medical record. Discussed Condition With Amanda Snider Dr., Ms. Nov 02, 2016 13:45 Sam Issa MD Nov 02, 2016 20:04
[2016-11-02] MEDS ORDERED: PHENOL 1.4% SOLN 180 ML BTL OROPHARYNG PRN (15:15)
[2016-11-02] MEDS ORDERED: BUPIVACAINE HCL PF 0.25% 30 ML VIAL ONE (16:24)
[2016-11-02] MEDS ORDERED: SUGAMMADEX SODIUM 200 MG/2 ML VIAL IV PUSH ONE ×2 (19:25)
[2016-11-02] MEDS ORDERED: fentaNYL CITRATE 250 MCG/5 ML AMP ONE (19:25)
[2016-11-02] MEDS ORDERED: ACETAMINOPHEN 1000 MG/100 ML 100 ML IV ONE (19:25)
--- NOTE | 2016-11-02 19:58 | HHI.PR ---
cc: Sam Issa MD Immediate Post Op Note Procedure Date: Nov 02, 2016 Pre Op Diagnosis: (1) SBO (small bowel obstruction) Post Op Diagnosis: Same, secondary to intra-abdominal adhesion Surgeon: Sam Issa Title Investigator(s): Alexandria Serrato CFA Procedure: Diagnostic laparoscopy, laparoscopic lysis of adhesions, repair of intestinal stricture Findings: Single adhesive band in RLQ Complications: None Specimen(s) removed: None Estimated blood loss: <10 ml Anesthesia: General Drains: ALISTAIR IVF (2000 ml) Patient to: PACU Patient Condition: Fair Date/Time of Procedure: SEE SURGICAL CARE RECORD Sam Issa MD Nov 02, 2016 19:58
[2016-11-02] MEDS: DEXTROSE 5%-LACTATED RING INJ 1,000 ML IV SCH (20:00)
[2016-11-02] MEDS ORDERED: RESP: IPRATROPIUM 0.5 MG/2.5 ML NEB NEB PRN (20:15)
[2016-11-02 20:52] LABS: BICARBONATE 29.4 MEQ/L (21.0-32.0); POTASSIUM 4.1 MEQ/L (3.5-5.1)
[2016-11-02] MEDS ORDERED: DO NOT ADM ANY ANTICOAGULANT DRUGS PRN (21:15)
[2016-11-02] MEDS: MORPHINE SULFATE 4 MG/ML INJ IV PRN (22:24)
[2016-11-03] VITALS (9 sets, daily range): BP systolic 121–166; BP diastolic 62–77; PULSE 77–89; RESP 18–20; TEMP 97.1–98.2; O2SAT 93–97
[2016-11-03] MEDS: DEXTROSE 5%-LACTATED RING INJ 1,000 ML IV SCH (04:00)
[2016-11-03] MEDS: PIPERACIL-TAZO 4.5 GM PREMIX 100 ML IV SCH ×4 (05:07→23:50)
[2016-11-03 06:05] LABS: AUTOMATED NEUTROPHIL # 10.4 TH/MM3 (1.8-7.7); BASOPHIL % 0.2 % (0.0-2.0); HEMATOCRIT 39.3 % (35.0-46.0); HEMO FLAGS DIFF FINAL; LYMPH % 7.9 % (9.0-44.0); MEAN CELL VOLUME 91.2 FL (80.0-100.0); MEAN CORPUSCULAR HEMOGLOBIN 29.7 PG (27.0-34.0); MEAN CORPUSCULAR HGB CONC 32.6 % (32.0-36.0); MONO % 6.2 % (0.0-8.0); NEUT % 85.7 % (16.0-70.0); PLATELET COUNT 240 TH/MM3 (150-450); RED BLOOD COUNT 4.31 MIL/MM3 (4.00-5.30); RED CELL DISTRIBUTION WIDTH 13.6 % (11.6-17.2); WHITE BLOOD COUNT 12.1 TH/MM3 (4.0-11.0)
[2016-11-03 06:33] LABS: BICARBONATE 31.1 MEQ/L (21.0-32.0)
[2016-11-03 06:43] LABS: POTASSIUM 2.9 MEQ/L (3.5-5.1)
[2016-11-03] MEDS ORDERED: POTASSIUM CHLORIDE 20 MEQ CONTROLLED RELEASE TAB PO ONE ×2 (08:15→09:00)
[2016-11-03] MEDS: POTASSIUM CHLOR 20 MEQ PREMIX 100 ML IV SCH ×3 (09:18→16:19)
[2016-11-03] MEDS: SODIUM CHLORIDE 0.9% FLUSH 10 ML FLUSH IV FLUSH SCH ×2 (09:19→21:00)
--- NOTE | 2016-11-03 10:08 | HHI.PR ---
Subjective Subjective Notes Resting in bed Thirsty Objective Vitals/I&O Vital Signs Date Time Temp Pulse Resp B/P (MAP) Pulse Ox O2 Delivery O2 Flow Rate FiO2 11/03/16 08:00 97.6 79 18 156/72 (100) 96 11/02/16 21:00 Nasal Cannula 2 11/02/16 07:30 21 Labs Laboratory Tests Test 11/02/16 20:20 11/03/16 05:25 Blood Urea Nitrogen 14 10 Creatinine 0.74 0.52 Random Glucose 132 168 Calcium Level 7.9 7.8 Sodium Level 132 133 Potassium Level 4.1 2.9 Chloride Level 94 95 Carbon Dioxide Level 29.4 31.1 Anion Gap 9 7 Estimat Glomerular Filtration Rate 79 119 White Blood Count 12.1 Red Blood Count 4.31 Hemoglobin 12.8 Hematocrit 39.3 Mean Corpuscular Volume 91.2 Mean Corpuscular Hemoglobin 29.7 Mean Corpuscular Hemoglobin Concent 32.6 Red Cell Distribution Width 13.6 Platelet Count 240 Mean Platelet Volume 8.1 Neutrophils (%) (Auto) 85.7 Lymphocytes (%) (Auto) 7.9 Monocytes (%) (Auto) 6.2 Eosinophils (%) (Auto) 0.0 Basophils (%) (Auto) 0.2 Neutrophils # (Auto) 10.4 Lymphocytes # (Auto) 1.0 Monocytes # (Auto) 0.8 Eosinophils # (Auto) 0.0 Basophils # (Auto) 0.0 CBC Comment DIFF FINAL Differential Comment Date/Time Source Procedure Growth Status 11/02/16 05:30 Blood Peripheral Aerobic Blood Culture Pending Received 11/02/16 05:30 Blood Peripheral Anaerobic Blood Culture Pending Received Radiology Last 48 hours Impressions Chest X-Ray 11/02/16514 Signed Impressions: Service Date/Time: October 05:42 - CONCLUSION: 1. No focal consolidation. Distended loops of bowel in the upper abdomen. Radu Montilla MD Abdomen/Pelvis CT 11/02/16514 Signed Impressions: Service Date/Time: October 06:11 - CONCLUSION: 1. Distal small bowel obstruction with multiple air-fluid levels and mild ascites. No free air. Radu Montilla MD Cardiovascular: Regular Lungs: Clear Abdomen: Other (dx lap sites c/d/i; ALISTAIR site with moderate amount of SS drainge- --changed; ALISTAIR with SS drainage; abdomen tender to palpation; mildly distended ) Extremities: No edema A/P Assessment and Plan 66 year old female POD1 dx lap; WERNER; repair of intestinal stricture -Continue NGT to LIWS -Okay for a few ice chips -Continue IVF -Replace K; recheck this afternoon -OOB and mobilize -IS -Pain control Attending Note - Dr. Issa Pain much improved since surgery The exam, history, and the medical decision-making described in the above note were completed with the assistance of the mid-level provider. I reviewed and agree with the findings presented. I attest that I had a [id number] encounter with the patient on the same day, and personally performed and documented my assessment and findings in the medical record. Amanda Hansen Nov 03, 2016 10:08 Sam Issa MD Nov 13, 2016 17:29
--- NOTE | 2016-11-03 10:15 | HHI.PR ---
Subjective Remarks Not passing gas. No nausea or vomiting. Mid abdominal pain. Wants some ice chips. Objective Vitals Vital Signs Date Time Temp Pulse Resp B/P (MAP) Pulse Ox O2 Delivery O2 Flow Rate FiO2 11/03/16 08:00 97.6 79 18 156/72 (100) 96 11/03/16 04:00 98.1 79 20 146/70 (95) 97 11/03/16 02:34 78 11/03/16 00:00 98.0 82 18 121/62 (81) 94 11/02/16 21:59 98.1 86 18 150/71 (97) 98 11/02/16 21:00 93 20 145/66 (92) 94 Nasal Cannula 2 11/02/16 20:45 101 20 152/70 (97) 95 Nasal Cannula 2 11/02/16 20:30 101 20 158/75 (102) 94 Nasal Cannula 2 11/02/16 20:15 110 20 125/78 (94) 100 Nasal Cannula 2 11/02/16 20:06 98.0 113 20 122/66 (84) 100 Simple Mask 10 11/02/16 18:35 86 15 172/76 (108) 93 11/02/16 18:00 86 15 172/84 (113) 93 11/02/16 17:30 80 15 155/81 (105) 93 11/02/16 17:00 97.9 81 15 159/77 (104) 90 11/02/16 15:50 98.0 90 15 145/64 (91) 92 11/02/16 14:00 96.1 85 16 146/71 (96) 96 11/02/16 12:59 87 20 135/76 (95) I/O 11/02/16 11/02/16 11/02/16 11/03/16 11/03/16 11/03/16 07:00 15:00 23:00 07:00 15:00 23:00 Intake Total 2400 ml 1200 ml Output Total 695 ml 780 ml Balance 1705 ml 420 ml Intake Oral 0 ml 0 ml IV Total 2400 ml 1200 ml Output Urine Total 400 ml 300 ml Gastric Drainage Total 105 ml 325 ml Drainage Total 180 ml 155 ml Estimated Blood Loss 10 ml # Voids 2 # Bowel Movements 0 0 Result Diagram: 8/25/17 0525 8/25/17 0525 Objective Remarks GENERAL: This is a well-nourished, well-developed patient, in no apparent distress with NG tube L low intermittent suction. CARDIOVASCULAR: Regular rate and rhythm RESPIRATORY: Clear to auscultation. Breath sounds equal bilaterally. No wheezes , rales, or rhonchi. GASTROINTESTINAL: Abdomen soft, mild tenderness, no rebound guarding, ALISTAIR drains in place with surgical wound clean dry intact. Hypoactive bowel sounds MUSCULOSKELETAL: Extremities without clubbing, cyanosis, or edema. NEURO: Alert & Oriented x4 to person, place, time, situation. Moves all ext x4 A/P Problem List: (1) Severe sepsis ICD Code: A41.9 - Sepsis, unspecified organism; R65.20 - Severe sepsis without septic shock Status: Resolved (2) Hyponatremia ICD Code: E87.1 - Hypo-osmolality and hyponatremia Status: Acute (3) SBO (small bowel obstruction) ICD Code: K56.69 - Other intestinal obstruction Status: Acute Assessment and Plan 1. Severe sepsis present on admission with leukocytosis and tachypnea with suspected inflammatory bowel with possibly perforated appendix leading to small bowel obstruction. Lactic acid 2.2 . Sepsis now resolved with IV fluid hydration, IV antibiotics Zosyn to be continued. Blood cultures currently negative. 2. Small bowel obstruction status post operative day #1 diagnostic laparoscopy with lysis of adhesion with repair intestinal stricture findings of right lower quadrant single adhesive band- continue postoperative supportive care, bowel rest with NG tube to low intermittent suction, appreciate general surgery consultation. Pain control. Encourage physical activity. 3. Hyponatremia due to hypovolemia and interactive nausea or vomiting- IV fluid hydration. Change to D5 normal saline +20 of K CL- monitor 4. Hypokalemia- replete 5. DVT prophylaxis SCDs, start Lovenox when okay with surgery. Discharge Planning Home when cleared by surgery. Sarah Goins MD Nov 03, 2016 10:15
[2016-11-03] MEDS: D5-NS + KCL 20 MEQ INJ 1,000 ML IV SCH ×3 (11:11→22:08)
[2016-11-03] MEDS: MORPHINE SULFATE 4 MG/ML INJ IV PRN ×2 (11:13→16:22)
[2016-11-03] MEDS ORDERED: ENALAPRILAT 1.25 MG/ML VIAL IV PRN (17:00)
[2016-11-04 00:03] VITALS: BP 161/74; PULSE 84; RESP 18; TEMP 96.9; O2SAT 92
[2016-11-04 04:00] VITALS: BP 159/82; PULSE 78; RESP 20; TEMP 97.9; O2SAT 92
[2016-11-04 05:22] LABS: MAGNESIUM 1.8 MG/DL (1.5-2.5); POTASSIUM 3.2 MEQ/L (3.5-5.1)
[2016-11-04] MEDS: PIPERACIL-TAZO 4.5 GM PREMIX 100 ML IV SCH ×4 (05:32→23:06)
[2016-11-04 08:00] VITALS: BP 173/83; PULSE 74; PULSE 76; RESP 18; TEMP 97.4; O2SAT 94
--- NOTE | 2016-11-04 08:25 | HHI.PR ---
Subjective Remarks f/u; bowel obstruction in no acute distress but uncomfortable with the pain. says that she's feeling weak. no nausea or vomiting. NG tube in place. no fever. Objective Vitals Vital Signs Date Time Temp Pulse Resp B/P (MAP) Pulse Ox O2 Delivery O2 Flow Rate FiO2 11/04/16 04:00 97.9 78 20 159/82 (107) 92 11/04/16 00:03 96.9 84 18 161/74 (103) 92 11/03/16 21:33 21 11/03/16 20:00 98.2 87 18 150/70 (96) 93 11/03/16 20:00 83 11/03/16 18:47 77 11/03/16 16:00 97.7 84 18 161/77 (105) 95 11/03/16 11:28 97.1 89 20 166/75 (105) 94 11/03/16 09:56 94 I/O 11/03/16 11/03/16 11/03/16 11/04/16 11/04/16 11/04/16 07:00 15:00 23:00 07:00 15:00 23:00 Intake Total 1200 ml 495 ml 1048 ml 0 ml Output Total 780 ml 1745 ml 550 ml Balance 420 ml 495 ml -697 ml -550 ml Intake Oral 0 ml 0 ml 0 ml IV Total 1200 ml 495 ml 1048 ml Output Urine Total 300 ml 850 ml 500 ml Gastric Drainage Total 325 ml 825 ml Drainage Total 155 ml 70 ml 50 ml # Bowel Movements 0 0 0 Result Diagram: 11/03/16 0525 11/04/16 0427 Imaging Last Impressions Chest X-Ray 11/02/16514 Signed Impressions: Service Date/Time: October 05:42 - CONCLUSION: 1. No focal consolidation. Distended loops of bowel in the upper abdomen. Radu Montilla MD Abdomen/Pelvis CT 11/02/16514 Signed Impressions: Service Date/Time: October 06:11 - CONCLUSION: 1. Distal small bowel obstruction with multiple air-fluid levels and mild ascites. No free air. Radu Montilla MD Objective Remarks GENERAL: in no acute distress but uncomfortable with the pain. CARDIOVASCULAR: Regular rate and regular rhythm without murmurs, gallops, or rubs. RESPIRATORY: Clear to auscultation. Breath sounds equal bilaterally. No wheezes , rales, or rhonchi. GASTROINTESTINAL: Abdomen soft, non-tender, distended. Normal, active bowel sounds MUSCULOSKELETAL: Extremities without clubbing, cyanosis, or edema. NEURO: Alert & Oriented x4 to person, place, time, situation. Moves all ext x4 Procedures laparoscopic lysis of adhesions. Medications and IVs Current Medications Morphine Sulfate (Morphine Inj) 2 mg ONCE ONCE IV PUSH Last administered on 05:56; Start 11/02/16 at 05:15; Stop 11/02/16 at 05:21; Status DC Ondansetron HCl (Zofran Inj) 4 mg ONCE ONCE IVP Last administered on 05:54; Start 11/02/16 at 05:15; Stop 11/02/16 at 05:21; Status DC Sodium Chloride (NS Flush) 2 ml UNSCH PRN IV FLUSH FLUSH AFTER USING IV ACCESS ; Start 11/02/16 at 05:15; Stop 11/03/16 at 07:50; Status DC Piperacillin Sod/ Tazobactam Sod 50 ml @ 100 mls/hr ONCE ONCE IV Last administered on 11/02/16 05:56; Start 11/02/16 at 05:15; Stop 11/02/16 at 05:44 ; Status DC Sodium Chloride 1,000 ml @ 100 mls/hr Q10H IV Last administered on 11/02/16 06:04; Start 11/02/16 at 05:15; Stop 11/02/16 at 07:23; Status DC Sodium Chloride 500 ml @ 500 mls/hr BOLUS ONCE IV Last administered on 05:56; Start 11/02/16 at 05:15; Stop 11/02/16 at 06:14; Status DC Iohexol (Omnipaque 350 Inj) 93 ml STK-MED ONCE IVCONTRAST Last administered on 11/02/16 06:25; Start 11/02/16 at 06:25; Stop 11/02/16 at 06:26; Status DC Sodium Chloride 1,000 ml @ 999 mls/hr BOLUS ONCE IV Last administered on 11/02 07:32; Start 11/02/16 at 06:45; Stop 11/02/16 at 07:45; Status DC Sodium Chloride 1,000 ml @ 100 mls/hr Q10H IV Last administered on 11/02/16 07:32; Start 11/02/16 at 07:10; Stop 11/02/16 at 20:01; Status DC Sodium Chloride (NS Flush) 2 ml UNSCH PRN IV FLUSH FLUSH AFTER USING IV ACCESS ; Start 11/02/16 at 07:15 Sodium Chloride (NS Flush) 2 ml BID IV FLUSH Last administered on 11/03/16 09: 19; Start 11/02/16 at 09:00 Ondansetron HCl (Zofran Inj) 4 mg Q6H PRN IVP NAUSEA OR VOMITING; Start at 12:00 Naloxone HCl (Narcan Inj) 0.4 mg UNSCH PRN IV SEE LABEL COMMENTS; Start at 07:15 Sodium Chloride (NS Flush) 2 ml BID IV FLUSH ; Start 11/02/16 at 09:00; Status UNV Sodium Chloride (NS Flush) 2 ml UNSCH PRN IVF FLUSH AFTER USING IV ACCESS; Start 11/02/16 at 07:15; Status UNV Morphine Sulfate (Morphine Inj) 2 mg Q3H PRN IV PUSH pain >5 Last administered on 11/02/16 07:55; Start 11/02/16 at 09:00; Stop 11/02/16 at 09:00; Status DC Piperacillin Sod/ Tazobactam Sod 100 ml @ 200 mls/hr Q6H IV Last administered on 11/04/16 05:32; Start 11/02/16 at 12:00 Acetaminophen (Tylenol) 650 mg Q6H PRN PO PAIN SCALE 1 TO 2; Start 11/02/16 at 09:00 Acetaminophen/ Hydrocodone Bitart ([place] 5-325 Mg) 1 tab Q4H PRN PO PAIN SCALE 3 TO 5; Start 11/02/16 at 09:00 Acetaminophen/ Hydrocodone Bitart ([place] 7.5-325 Mg) 1 tab Q4H PRN PO PAIN SCALE 6 TO 10; Start 11/02/16 at 09:00 Morphine Sulfate (Morphine Inj) 2 mg Q3H PRN IV Pain 3-5; if unable to take PO ; Start 11/02/16 at 09:00 Morphine Sulfate (Morphine Inj) 4 mg Q3H PRN IV Pain 6-10;if unable to take PO Last administered on 11/03/16 16:22; Start 11/02/16 at 09:00 Phenol (Chloraseptic [place]) 2 spray Q2H PRN OROPHARYNG sore throat Last administered on 11/02/16 15:52; Start 11/02/16 at 15:15 Bupivacaine HCl (Marcaine Pf 0.25% Inj) 30 ml STK-MED ONCE .ROUTE Last administered on 11/02/16 19:10; Start 11/02/16 at 16:24; Stop 11/02/16 at 16:25 ; Status DC Fentanyl Citrate (fentaNYL INJ) 100 mcg STK-MED ONCE .ROUTE ; Start 11/02/16 at 18:01; Stop 11/02/16 at 18:02; Status DC Fentanyl Citrate (fentaNYL INJ) 25 mcg UNSCH X1 PRN IV SEE LABEL COMMENTS; Start 11/02/16 at 18:30; Stop 11/02/16 at 19:00; Status DC Sugammadex Sodium ([place] Inj) 200 mg STK-MED ONCE IV PUSH ; Start 11/02/16 at 19:25; Stop 11/02/16 at 19:26; Status DC Fentanyl Citrate (fentaNYL INJ) 250 mcg STK-MED ONCE .ROUTE ; Start 11/02/16 at 19:25; Stop 11/02/16 at 19:26; Status DC Acetaminophen 100 ml @ As Directed STK-MED ONCE IV ; Start 11/02/16 at 19:25; Stop 11/02/16 at 19:26; Status DC Dextrose/Lactated Ringer's 1,000 ml @ 125 mls/hr Q8H IV Last administered on 04:00; Start 11/02/16 at 20:00; Stop 11/03/16 at 10:10; Status DC Ipratropium [place] (Atrovent Neb) 0.5 mg Q6HR NEB PRN NEB congestion; Start at 20:15 Miscellaneous Information ALL NURSING DEPARTME... UNSCH PRN .XX SEE LABEL COMMENTS; Start 11/02/16 at 21:15; Stop 11/03/16 at 21:14; Status DC Potassium Chloride 100 ml @ 50 mls/hr Q2H IV Last administered on 11/03/16 16 :19; Start 11/03/16 at 08:00; Stop 11/03/16 at 11:59; Status DC Potassium Chloride (KCl) 40 meq NOW ONCE PO ; Start 11/03/16 at 08:15; Stop at 08:16; Status DC Potassium Chloride (KCl) 40 meq ONCE ONCE PO ; Start 11/03/16 at 09:00; Stop at 09:01; Status Cancel Potassium Chloride/Dextrose/ Sod Cl 1,000 ml @ 100 mls/hr Q10H IV Last administered on 11/03/16 22:08; Start 11/03/16 at 11:00 Enalaprilat (Vasotec Inj) 1.25 mg Q6H PRN IV SBP> OR = 180, DBP> OR = 100; Start 11/03/16 at 17:00 A/P Assessment and Plan A/P 1. Severe sepsis present on admission with leukocytosis and tachypnea with suspected inflammatory bowel with possibly perforated appendix leading to small bowel obstruction. Sepsis now resolved with IV fluid hydration, IV antibiotics Zosyn to be continued. Blood cultures currently negative. 2. Small bowel obstruction status post diagnostic laparoscopy with lysis of adhesion continue postoperative supportive care, bowel rest with NG tube to low intermittent suction, appreciate general surgery consultation. Pain control. Encourage physical activity. 3. Hyponatremia due to hypovolemia and interactive nausea or vomiting- improved - continue IV fluid hydration. 4. Hypokalemia- replete 5. DVT prophylaxis SCDs, start Lovenox when okay with surgery. Blossom Hernandez MD Nov 04, 2016 08:25
[2016-11-04] MEDS: SODIUM CHLORIDE 0.9% FLUSH 10 ML FLUSH IV FLUSH SCH ×2 (08:35→20:41)
[2016-11-04] MEDS: D5-NS + KCL 20 MEQ INJ 1,000 ML IV SCH ×2 (08:35→23:06)
--- NOTE | 2016-11-04 10:09 | HHI.PR ---
Subjective Subjective Notes sore, reports some flatus, wants ice chips for her dry mouth Objective Vitals/I&O Vital Signs Date Time Temp Pulse Resp B/P (MAP) Pulse Ox O2 Delivery O2 Flow Rate FiO2 11/04/16 08:00 97.4 76 18 173/83 (113) 94 11/03/16 21:33 21 11/02/16 21:00 Nasal Cannula 2 Labs Laboratory Tests Test 11/03/16 12:57 11/04/16 04:27 Potassium Level 3.1 3.2 Blood Urea Nitrogen 6 Creatinine 0.48 Random Glucose 136 Calcium Level 7.6 Magnesium Level 1.8 Sodium Level 138 Chloride Level 100 Carbon Dioxide Level 31.0 Anion Gap 7 Estimat Glomerular Filtration Rate 130 Date/Time Source Procedure Growth Status 11/02/16 05:30 Blood Peripheral Aerobic Blood Culture - Preliminary NO GROWTH IN 1 DAY Resulted 11/02/16 05:30 Blood Peripheral Anaerobic Blood Culture - Preliminary NO GROWTH IN 1 DAY Resulted Radiology Last 48 hours Impressions Chest X-Ray 11/02/16514 Signed Impressions: Service Date/Time: October 05:42 - CONCLUSION: 1. No focal consolidation. Distended loops of bowel in the upper abdomen. Radu Montilla MD Abdomen/Pelvis CT 11/02/16514 Signed Impressions: Service Date/Time: October 06:11 - CONCLUSION: 1. Distal small bowel obstruction with multiple air-fluid levels and mild ascites. No free air. Radu Montilla MD Cardiovascular: Regular Lungs: Clear Abdomen: Post-op tenderness Narrative Exam distended, abdomen quiet. few BS. wounds are clean, ALISTAIR with serous fluid A/P Assessment and Plan s/p lap WERNER, stricture repair dc guzman decrease IVF ok for ice chips and popcicles await lower NG output, still very high Virgilio Garzon MD Nov 04, 2016 10:09
[2016-11-04 12:00] VITALS: BP 160/86; PULSE 85; RESP 18; TEMP 99.5; O2SAT 96
[2016-11-04 19:56] VITALS: PULSE 77
[2016-11-04 20:00] VITALS: BP 143/66; PULSE 82; RESP 18; TEMP 99.5; O2SAT 94
[2016-11-05] VITALS (8 sets, daily range): BP systolic 125–166; BP diastolic 60–92; PULSE 68–87; RESP 16–20; TEMP 96.4–98.9; O2SAT 94–100
[2016-11-05] MEDS: PIPERACIL-TAZO 4.5 GM PREMIX 100 ML IV SCH ×4 (05:51→23:16)
[2016-11-05 06:10] LABS: AUTOMATED NEUTROPHIL # 8.4 TH/MM3 (1.8-7.7); BASOPHIL % 0.4 % (0.0-2.0); EOSINOPHIL # 0.1 TH/MM3 (0-0.4); EOSINOPHIL % 1.2 % (0.0-4.0); HEMATOCRIT 37.1 % (35.0-46.0); HEMO FLAGS DIFF FINAL; LYMPH % 13.2 % (9.0-44.0); LYMPHOCYTE # 1.5 TH/MM3 (1.0-4.8); MEAN CORPUSCULAR HEMOGLOBIN 30.3 PG (27.0-34.0); MEAN CORPUSCULAR HGB CONC 33.7 % (32.0-36.0); MONO % 10.2 % (0.0-8.0); PLATELET COUNT 234 TH/MM3 (150-450); RED BLOOD COUNT 4.12 MIL/MM3 (4.00-5.30); RED CELL DISTRIBUTION WIDTH 13.5 % (11.6-17.2); WHITE BLOOD COUNT 11.3 TH/MM3 (4.0-11.0)
--- NOTE | 2016-11-05 06:31 | MP ---
cc: RAMON ISSA M.D. DATE OF SURGERY: 11/02/2016 PROCEDURE: 1. Diagnostic laparoscopy. 2. Laparoscopic lysis of adhesions. 3. Repair of ischemic partial wall thickness of small bowel with primary repair sutures. ANESTHESIA: General endotracheal anesthesia SURGEON: Sonia Issa MD. ESTIMATED BLOOD LOSS: Less than 10 mL INSTRUCTOR ADJUNCT SURGICAL TECHNICIAN: Ro Medina CFA. ESTIMATED BLOOD LOSS: Less than 10 mL FLUIDS: 2000 mL Crystalloid COMPLICATIONS: None. DRAINS: ALISTAIR x1. SPECIMEN: None. PROCEDURE IN DETAIL: The patient was taken to the operating room and placed on the operating table in the supine position. After adequate level of general endotracheal anesthesia was achieved the abdomen was prepped and draped in usual fashion. Time-out was taken confirming the correct patient, site and procedure to be performed. Incision was made below the umbilicus and the peritoneal cavity directly visualized utilizing a 5-mm trocar and low pressure insufflation. The peritoneal cavity was entered uneventfully. A 30 degree 5 mm laparoscope was inserted and the abdomen evaluated. Bloody fluid was noted in the pelvis and in the right lower quadrant. The patient was placed in Trendelenburg position and two additional 5-mm trocars were placed with the first in the suprapubic region and the second above the umbilicus. Manipulation of the bowel revealed a single adhesive band in the right lower quadrant where the transition point was noted on CT scan. This was divided both sharply and with use of the harmonic scalpel. When this was released small bowel distal to this was clearly normal. All bloody fluid in the abdomen was irrigated and aspirated. The small bowel that had been tethered had one small area where the bowel appeared to have a small area of thinning ischemia. This was reinforced with 3-0 Vicryl suture x2 placed in a lot transverse fashion. This completely inverted the area of bowel that had been involved in the stricture. The remainder of the bowel appeared completely viable. When this was completed, insufflation was discontinued. A ALISTAIR drain was brought out via the lowest 5 millimeter trocar site and placed in the right lower quadrant and pelvis. This was affixed to the skin with a 3-0 nylon suture. Insufflation was discontinued and the remaining 5 millimeter trocars were removed. The abdomen was allowed to completely desufflate. The skin was closed at both 5 millimeter trocar sites with 4-0 Vicryl in an interrupted buried fashion. A 4x4 was applied around the drain site and Steri-Strips applied to the other two 5 millimeter trocar sites. The patient was extubated and taken back to the Recovery Room in stable condition. Sponge and needle counts were reported to be correct. MD WILLIS Pavon/LUIS FELIPE /8:05 PM /6:20 AM
[2016-11-05 07:35] LABS: BICARBONATE 29.7 MEQ/L (21.0-32.0)
[2016-11-05 07:43] LABS: POTASSIUM 2.6 MEQ/L (3.5-5.1)
[2016-11-05] MEDS: SODIUM CHLORIDE 0.9% FLUSH 10 ML FLUSH IV FLUSH SCH ×2 (09:00→20:34)
[2016-11-05] MEDS ORDERED: POTASSIUM CHLORIDE 20 MEQ CONTROLLED RELEASE TAB PO ONE (10:30)
--- NOTE | 2016-11-05 11:57 | HHI.PR ---
Subjective Remarks Follow-up bowel obstruction 11/05/16-patient seen and examined, she has had NG tube removed accidentally. Overnight patient only had 50 cc out. positive for bowel movement this morning and continued to have Flatus Objective Vitals Vital Signs Date Time Temp Pulse Resp B/P (MAP) Pulse Ox O2 Delivery O2 Flow Rate FiO2 11/05/16 08:00 98.3 68 16 147/68 (94) 94 11/05/16 03:22 98.6 83 19 125/63 (83) 96 11/05/16 00:00 98.9 79 18 129/60 (83) 97 11/04/16 20:00 99.5 82 18 143/66 (91) 94 11/04/16 19:56 77 11/04/16 12:00 99.5 85 18 160/86 (110) 96 I/O 11/04/16 11/04/16 11/04/16 11/05/16 11/05/16 11/05/16 07:00 15:00 23:00 07:00 15:00 23:00 Intake Total 0 ml 100 ml 1900 ml 250 ml Output Total 550 ml 1000 ml 2460 ml 3100 ml Balance -550 ml -900 ml -560 ml -2850 ml Intake Oral 0 ml 900 ml 150 ml IV Total 100 ml 1000 ml 100 ml Output Urine Total 500 ml 1000 ml 1250 ml 3000 ml Gastric Drainage Total 1000 ml 50 ml Drainage Total 50 ml 210 ml 50 ml # Bowel Movements 0 0 0 Result Diagram: 11/05/16 0540 11/05/16 0540 Imaging Last Impressions Chest X-Ray 11/02/16514 Signed Impressions: Service Date/Time: October 05:42 - CONCLUSION: 1. No focal consolidation. Distended loops of bowel in the upper abdomen. Radu Montilla MD Abdomen/Pelvis CT 11/02/16514 Signed Impressions: Service Date/Time: October 06:11 - CONCLUSION: 1. Distal small bowel obstruction with multiple air-fluid levels and mild ascites. No free air. Radu Montilla MD Objective Remarks GENERAL: NAD SKIN: Warm and dry. HEAD: Normocephalic. EYES: No scleral icterus. No injection or drainage. NECK: Supple, trachea midline. No JVD or lymphadenopathy. CARDIOVASCULAR: Regular rate and rhythm without murmurs, gallops, or rubs. RESPIRATORY: Breath sounds equal bilaterally. No accessory muscle use. GASTROINTESTINAL: Abdomen soft, non-tender, nondistended. MUSCULOSKELETAL: No cyanosis, or edema. BACK: Nontender without obvious deformity. No CVA tenderness. Procedures laparoscopic lysis of adhesions. A/P Problem List: (1) Severe sepsis ICD Code: A41.9 - Sepsis, unspecified organism; R65.20 - Severe sepsis without septic shock Status: Resolved (2) Hyponatremia ICD Code: E87.1 - Hypo-osmolality and hyponatremia Status: Acute (3) SBO (small bowel obstruction) ICD Code: K56.69 - Other intestinal obstruction Status: Acute Assessment and Plan 66-year-old female with 1. Severe sepsis : now resolved with IV fluid hydration, IV antibiotics Zosyn . Blood cultures currently negative. 2. Small bowel obstruction status post diagnostic laparoscopy with lysis of adhesion NG tube discontinued accidentally this a.m. however only 1 50 cc out over 24 hours. Would get flat and upright x-ray Continue with nothing by mouth pending further evaluation from general surgery 3. Hyponatremia due to hypovolemia and interactive nausea or vomiting- improved - continue IV fluid hydration. 4. Hypokalemia- replete 5. DVT prophylaxis SCDs, start Lovenox when okay with surgery. Luis E Rizzo MD Nov 05, 2016 11:57
[2016-11-05] MEDS ORDERED: ACETAMINOPHEN 325 MG TAB PO PRN (12:00)
[2016-11-05] MEDS ORDERED: ONDANSETRON HCL 4 MG/2 ML VIAL IV PRN (12:00)
--- NOTE | 2016-11-05 16:49 | RADRPT ---
EXAM DATE/TIME: 11/05/2016 15:27 [facility] COMPARISON: CT ABDOMEN & PELVIS W CONTRAST, November 02, 2016, 6:11. INDICATIONS : Small bowel obstruction MEDICAL HISTORY : Distal small bowel obstruction with multiple air-fluid levels and mild ascites. SURGICAL HISTORY : Drainage tube ENCOUNTER: Initial ACUITY: 3 days PAIN SCORE: 2/10 LOCATION: Abdomen FINDINGS: Air filled minimally dilated loops of small bowel are noted and appear significantly improved compare d to the previous CT dated 11/02/16 suggesting resolving small bowel obstruction or ileus. Air is no niko throughout the colon which is non-dilated. A foreign body is noted within the right lower quadra nt which has the appearance of a drain. CONCLUSION: Air filled minimally dilated loops of small bowel which are significantly improved compared to the pr evious CT dated 11/02/16 suggesting resolving small bowel obstruction or ileus. Sky Pedraza MD on November 05, 2016 at 16:18 Board Certified Radiologist. This report was verified electronically.
--- NOTE | 2016-11-05 18:01 | HHI.PR ---
Subjective Subjective Notes feels much better Objective Vitals/I&O Vital Signs Date Time Temp Pulse Resp B/P (MAP) Pulse Ox O2 Delivery O2 Flow Rate FiO2 11/05/16 16:00 96.4 78 18 166/85 (112) 98 11/03/16 21:33 21 11/02/16 21:00 Nasal Cannula 2 Labs Laboratory Tests Test 11/05/16 05:40 White Blood Count 11.3 Red Blood Count 4.12 Hemoglobin 12.5 Hematocrit 37.1 Mean Corpuscular Volume 90.0 Mean Corpuscular Hemoglobin 30.3 Mean Corpuscular Hemoglobin Concent 33.7 Red Cell Distribution Width 13.5 Platelet Count 234 Mean Platelet Volume 8.7 Neutrophils (%) (Auto) 75.0 Lymphocytes (%) (Auto) 13.2 Monocytes (%) (Auto) 10.2 Eosinophils (%) (Auto) 1.2 Basophils (%) (Auto) 0.4 Neutrophils # (Auto) 8.4 Lymphocytes # (Auto) 1.5 Monocytes # (Auto) 1.2 Eosinophils # (Auto) 0.1 Basophils # (Auto) 0.0 CBC Comment DIFF FINAL Differential Comment Blood Urea Nitrogen 4 Creatinine 0.44 Random Glucose 108 Calcium Level 7.7 Sodium Level 133 Potassium Level 2.6 Chloride Level 94 Carbon Dioxide Level 29.7 Anion Gap 9 Estimat Glomerular Filtration Rate 144 Date/Time Source Procedure Growth Status 11/02/16 05:30 Blood Peripheral Aerobic Blood Culture - Preliminary NO GROWTH IN 3 DAYS Resulted 11/02/16 05:30 Blood Peripheral Anaerobic Blood Culture - Preliminary NO GROWTH IN 3 DAYS Resulted Radiology Last 48 hours Impressions Chest X-Ray 11/02/16514 Signed Impressions: Service Date/Time: October 05:42 - CONCLUSION: 1. No focal consolidation. Distended loops of bowel in the upper abdomen. Radu Montilla MD Abdomen/Pelvis CT 11/02/16514 Signed Impressions: Service Date/Time: October 06:11 - CONCLUSION: 1. Distal small bowel obstruction with multiple air-fluid levels and mild ascites. No free air. Radu Montilla MD Cardiovascular: Regular Lungs: Clear Abdomen: Non-distended, Post-op tenderness A/P Assessment and Plan 66yo female s/p WERNER, stable. DC NG clears OOB pain ok Domenico Coyle MD Nov 05, 2016 18:01
[2016-11-05] MEDS: D5-NS + KCL 20 MEQ INJ 1,000 ML IV SCH (20:34)
[2016-11-06] VITALS (7 sets, daily range): BP systolic 132–159; BP diastolic 61–81; PULSE 67–89; RESP 16–19; TEMP 96.6–98.8; O2SAT 96–100
[2016-11-06] MEDS: PIPERACIL-TAZO 4.5 GM PREMIX 100 ML IV SCH ×4 (05:33→23:47)
[2016-11-06 08:06] LABS: BICARBONATE 30.1 MEQ/L (21.0-32.0)
[2016-11-06 08:14] LABS: POTASSIUM 2.8 MEQ/L (3.5-5.1)
[2016-11-06] MEDS ORDERED: POTASSIUM CHLORIDE 10 MEQ CONTROLLED RELEASE TAB PO ONE (08:30)
[2016-11-06] MEDS: SODIUM CHLORIDE 0.9% FLUSH 10 ML FLUSH IV FLUSH SCH ×2 (09:00→21:14)
--- NOTE | 2016-11-06 12:28 | HHI.PR ---
Subjective Remarks Follow-up bowel obstruction 11/05/16-patient seen and examined, she has had NG tube removed accidentally. Overnight patient only had 50 cc out. positive for bowel movement this morning and continued to have Flatus 11/06/16-patient seen and examined, tolerating by mouth without any complication nausea and vomiting. Denies any significant abdominal pain. Patient had multiple BM today Objective Vitals Vital Signs Date Time Temp Pulse Resp B/P (MAP) Pulse Ox O2 Delivery O2 Flow Rate FiO2 11/06/16 08:21 98 11/06/16 08:00 97.1 67 16 159/78 (105) 97 11/06/16 03:44 96.6 68 19 138/61 (86) 96 11/06/16 00:00 98.8 89 19 132/72 (92) 98 11/05/16 22:17 100 11/05/16 20:00 98.1 79 20 135/92 (106) 97 11/05/16 19:42 87 11/05/16 16:00 96.4 78 18 166/85 (112) 98 I/O 11/05/16 11/05/16 11/05/16 11/06/16 11/06/16 11/06/16 07:00 15:00 23:00 07:00 15:00 23:00 Intake Total 250 ml 100 ml 1220 ml 220 ml Output Total 3100 ml 1310 ml 630 ml Balance -2850 ml 100 ml -90 ml -410 ml Intake Oral 150 ml 120 ml 120 ml IV Total 100 ml 100 ml 1100 ml 100 ml Output Urine Total 3000 ml 1300 ml 600 ml Gastric Drainage Total 50 ml Drainage Total 50 ml 10 ml 30 ml # Bowel Movements 0 6 0 Result Diagram: 11/05/16 0540 11/06/16 0530 Objective Remarks GENERAL: NAD SKIN: Warm and dry. HEAD: Normocephalic. EYES: No scleral icterus. No injection or drainage. NECK: Supple, trachea midline. No JVD or lymphadenopathy. CARDIOVASCULAR: Regular rate and rhythm without murmurs, gallops, or rubs. RESPIRATORY: Breath sounds equal bilaterally. No accessory muscle use. GASTROINTESTINAL: Abdomen soft, non-tender, nondistended. MUSCULOSKELETAL: No cyanosis, or edema. BACK: Nontender without obvious deformity. No CVA tenderness. Procedures laparoscopic lysis of adhesions. A/P Problem List: (1) Severe sepsis ICD Code: A41.9 - Sepsis, unspecified organism; R65.20 - Severe sepsis without septic shock Status: Resolved (2) Hyponatremia ICD Code: E87.1 - Hypo-osmolality and hyponatremia Status: Acute (3) SBO (small bowel obstruction) ICD Code: K56.69 - Other intestinal obstruction Status: Acute Assessment and Plan 66-year-old female with 1. Severe sepsis : now resolved with IV fluid hydration, IV antibiotics Zosyn . Blood cultures currently negative. 2. Small bowel obstruction status post diagnostic laparoscopy with lysis of adhesion Improving with current management Clear liquid and advance diet as tolerated Pain management accordingly 3. Hyponatremia: Resolved 4. Hypokalemia- gave potassium 60 mEq 1 now 5. DVT prophylaxis So Nath Eric MD Nov 06, 2016 12:28
--- NOTE | 2016-11-06 19:04 | HHI.PR ---
Subjective Subjective Notes Multiple BM's Tolerating clears well Objective Vitals/I&O Vital Signs Date Time Temp Pulse Resp B/P (MAP) Pulse Ox O2 Delivery O2 Flow Rate FiO2 11/06/16 16:00 98.4 76 18 138/72 (94) 100 11/03/16 21:33 21 11/02/16 21:00 Nasal Cannula 2 Labs Laboratory Tests Test 11/06/16 05:30 Blood Urea Nitrogen 4 Creatinine 0.43 Random Glucose 110 Calcium Level 7.9 Sodium Level 133 Potassium Level 2.8 Chloride Level 94 Carbon Dioxide Level 30.1 Anion Gap 9 Estimat Glomerular Filtration Rate 148 Date/Time Source Procedure Growth Status 11/02/16 05:30 Blood Peripheral Aerobic Blood Culture - Preliminary NO GROWTH IN 4 DAYS Resulted 11/02/16 05:30 Blood Peripheral Anaerobic Blood Culture - Preliminary NO GROWTH IN 4 DAYS Resulted Radiology Last 48 hours Impressions Chest X-Ray 11/02/16514 Signed Impressions: Service Date/Time: October 05:42 - CONCLUSION: 1. No focal consolidation. Distended loops of bowel in the upper abdomen. Radu Montilla MD Abdomen/Pelvis CT 11/02/16514 Signed Impressions: Service Date/Time: October 06:11 - CONCLUSION: 1. Distal small bowel obstruction with multiple air-fluid levels and mild ascites. No free air. Radu Montilla MD A/P Assessment and Plan S/P Laparoscopic WERNER Moving bowels Advance diet Remove drain in AM Likely D/C home tomorrow F/U my office one week Sam Issa MD Nov 06, 2016 19:04
[2016-11-06] MEDS: POTASSIUM CHLOR 20 MEQ PREMIX 100 ML IV SCH (21:11)
[2016-11-06] MEDS: LACTOBACILLUS ACIDOPHILUS TAB PO SCH (21:14)
[2016-11-06] MEDS ORDERED: LORazepam 0.5 MG TAB PO ONE (23:15)
[2016-11-07] VITALS: BP 146/70; PULSE 81; RESP 16; TEMP 97.5; O2SAT 99
[2016-11-07] MEDS: POTASSIUM CHLOR 20 MEQ PREMIX 100 ML IV SCH (02:30)
[2016-11-07] MEDS: PIPERACIL-TAZO 4.5 GM PREMIX 100 ML IV SCH (06:12)
[2016-11-07 08:00] VITALS: BP 133/74; PULSE 78; RESP 17; TEMP 97.1; O2SAT 98
[2016-11-07 08:12] LABS: BICARBONATE 24.5 MEQ/L (21.0-32.0); POTASSIUM 3.4 MEQ/L (3.5-5.1)
[2016-11-07] MEDS: LACTOBACILLUS ACIDOPHILUS TAB PO SCH (09:00)
[2016-11-07] MEDS: SODIUM CHLORIDE 0.9% FLUSH 10 ML FLUSH IV FLUSH SCH (09:47)
--- NOTE | 2016-11-07 10:49 | HHI.PR ---
Subjective Remarks Follow-up bowel obstruction 11/05/16-patient seen and examined, she has had NG tube removed accidentally. Overnight patient only had 50 cc out. positive for bowel movement this morning and continued to have Flatus 11/06/16-patient seen and examined, tolerating by mouth without any complication nausea and vomiting. Denies any significant abdominal pain. Patient had multiple BM today 11/07/16-patient seen and examined, denies any nausea of vomiting with by mouth intake. Denies any abdominal pain. Looking forward discharge home today. Patient states, she does have help at home and does not need home health care Objective Vitals Vital Signs Date Time Temp Pulse Resp B/P (MAP) Pulse Ox O2 Delivery O2 Flow Rate FiO2 11/07/16 08:00 97.1 78 17 133/74 (93) 98 11/07/16 00:00 97.5 81 16 146/70 (95) 99 11/06/16 20:00 98.6 76 16 146/70 (95) 99 11/06/16 16:00 98.4 76 18 138/72 (94) 100 11/06/16 12:00 98.1 78 16 155/81 (105) 100 I/O 11/06/16 11/06/16 11/06/16 11/07/16 11/07/16 11/07/16 06:59 14:59 22:59 06:59 14:59 22:59 Intake Total 220 ml 2200 ml 700 ml 100 ml Output Total 630 ml 30 ml Balance -410 ml 2200 ml 670 ml 100 ml Intake Oral 120 ml 2200 ml IV Total 100 ml 700 ml 100 ml Output Urine Total 600 ml Drainage Total 30 ml 30 ml # Voids 6 2 # Bowel Movements 0 0 Result Diagram: 11/05/16 0540 11/07/16 0710 Imaging Last Impressions Abdomen X-Ray 11/05/16 0000 Signed Impressions: Service Date/Time: Saturday, November 05, 2016 15:27 - CONCLUSION: Air filled minimally dilated loops of small bowel which are significantly improved compared to the previous CT dated 11/02/16 suggesting resolving small bowel obstruction or ileus. Sky Pedraza MD Chest X-Ray 11/02/16 0515 Signed Impressions: Service Date/Time: October 05:42 - CONCLUSION: 1. No focal consolidation. Distended loops of bowel in the upper abdomen. Radu Montilla MD Abdomen/Pelvis CT 11/02/16 0515 Signed Impressions: Service Date/Time: October 06:11 - CONCLUSION: 1. Distal small bowel obstruction with multiple air-fluid levels and mild ascites. No free air. Radu Montilla MD Objective Remarks GENERAL: NAD SKIN: Warm and dry. HEAD: Normocephalic. EYES: No scleral icterus. No injection or drainage. NECK: Supple, trachea midline. No JVD or lymphadenopathy. CARDIOVASCULAR: Regular rate and rhythm without murmurs, gallops, or rubs. RESPIRATORY: Breath sounds equal bilaterally. No accessory muscle use. GASTROINTESTINAL: Abdomen soft, non-tender, nondistended. inc c/d/i MUSCULOSKELETAL: No cyanosis, or edema. BACK: Nontender without obvious deformity. No CVA tenderness. Procedures laparoscopic lysis of adhesions. A/P Problem List: (1) Severe sepsis ICD Code: A41.9 - Sepsis, unspecified organism; R65.20 - Severe sepsis without septic shock Status: Resolved (2) Hyponatremia ICD Code: E87.1 - Hypo-osmolality and hyponatremia Status: Acute (3) SBO (small bowel obstruction) ICD Code: K56.69 - Other intestinal obstruction Status: Acute Assessment and Plan 66-year-old female with 1. Severe sepsis : now resolved 2. Small bowel obstruction status post diagnostic laparoscopy with lysis of adhesion Cultures have remained negative therefore will discontinue antibiotic Improved with current management Pain management accordingly Management per general surgery 3. Hyponatremia: Resolved 4. Hypokalemia- improved 5. DVT prophylaxis So Nath Eric MD Nov 07, 2016 10:49
--- NOTE | 2016-11-07 10:56 | HHI.DS ---
Discharge Summary Admission Date Nov 02, 2016 at 07:13 Discharge Date: Nov 07, 2016 Admitting Diagnosis SBO; sirs/sepsis (1) Severe sepsis ICD Code: A41.9 - Sepsis, unspecified organism; R65.20 - Severe sepsis without septic shock Status: Resolved (2) Hyponatremia ICD Code: E87.1 - Hypo-osmolality and hyponatremia Status: Acute (3) SBO (small bowel obstruction) ICD Code: K56.69 - Other intestinal obstruction Status: Acute Procedures laparoscopic lysis of adhesions. Brief History - From Admission 66-year-old white female with no significant past history we present about emergency room due to 5 day history of worsening abdominal pain and now with distention. She was seen 4 days ago when she started having mid lower epigastric pain and was diagnosed with gastroenteritis and sent home on antiemetics, antibiotics and pain medication. Since then, patient continued to have fever along with having no bowel movements for the past 4 days. She's had nonbilious emesis, persistent nausea to the point where she was having hard time keeping both liquid and solids down. She describes her pain as periumbilical sharp stabbing and worsening since Sunday. She states that she had taken her interlocks Flagyl and Cipro along with pain medication but did not give her antiemetics filled. She denies any symptoms of dysuria or urinary frequency or urgency. She denies any unusual food intake for the past 2 weeks. CBC/BMP: 11/05/16 0540 11/07/16 0710 Significant Findings Laboratory Tests Test 11/05/16 05:40 11/06/16 05:30 11/07/16 07:10 White Blood Count 11.3 TH/MM3 (4.0-11.0) Neutrophils (%) (Auto) 75.0 % (16.0-70.0) Monocytes (%) (Auto) 10.2 % (0.0-8.0) Neutrophils # (Auto) 8.4 TH/MM3 (1.8-7.7) Monocytes # (Auto) 1.2 TH/MM3 (0-0.9) Blood Urea Nitrogen 4 MG/DL (7-18) 4 MG/DL (7-18) 2 MG/DL (7-18) Creatinine 0.44 MG/DL (0.50-1.00) 0.43 MG/DL (0.50-1.00) 0.49 MG/DL (0.50-1.00) Random Glucose 108 MG/DL (74-106) 110 MG/DL (74-106) Calcium Level 7.7 MG/DL (8.5-10.1) 7.9 MG/DL (8.5-10.1) 8.2 MG/DL (8.5-10.1) Sodium Level 133 MEQ/L (136-145) 133 MEQ/L (136-145) 135 MEQ/L (136-145) Potassium Level 2.6 MEQ/L (3.5-5.1) 2.8 MEQ/L (3.5-5.1) 3.4 MEQ/L (3.5-5.1) Chloride Level 94 MEQ/L (98-107) 94 MEQ/L (98-107) Imaging Last Impressions Abdomen X-Ray 11/05/16 0000 Signed Impressions: Service Date/Time: Saturday, November 05, 2016 15:27 - CONCLUSION: Air filled minimally dilated loops of small bowel which are significantly improved compared to the previous CT dated 11/02/16 suggesting resolving small bowel obstruction or ileus. Sky Pedraza MD Chest X-Ray 11/02/16 0515 Signed Impressions: Service Date/Time: October 05:42 - CONCLUSION: 1. No focal consolidation. Distended loops of bowel in the upper abdomen. Radu Montilla MD Abdomen/Pelvis CT 11/02/16 0515 Signed Impressions: Service Date/Time: October 06:11 - CONCLUSION: 1. Distal small bowel obstruction with multiple air-fluid levels and mild ascites. No free air. Radu Montilla MD PE at Discharge GENERAL: NAD SKIN: Warm and dry. HEAD: Normocephalic. EYES: No scleral icterus. No injection or drainage. NECK: Supple, trachea midline. No JVD or lymphadenopathy. CARDIOVASCULAR: Regular rate and rhythm without murmurs, gallops, or rubs. RESPIRATORY: Breath sounds equal bilaterally. No accessory muscle use. GASTROINTESTINAL: Abdomen soft, non-tender, nondistended. inc c/d/i MUSCULOSKELETAL: No cyanosis, or edema. BACK: Nontender without obvious deformity. No CVA tenderness. Hospital Course Patient admitted secondary to sepsis due to intra-abdominal infection for which she was that on IV antibiotics with consultation to general surgery as patient was diagnosed with small bowel obstruction. She underwent exploratory laparoscopy with lysis of lesions. Management was provided accordingly. All electrolyte abnormalities were corrected accordingly. Renal function improve IV fluid hydration. DVT and GI prophylaxis were provided. Patient diet was subsequently advanced and her condition improved prior to discharge. She completed her course of antibiotic Pt Condition on Discharge: Stable Discharge Disposition: Discharge Home Discharge Time: <= 30 minutes Discharge Instructions DIET: Follow Instructions for: Heart Healthy Diet Activities you can perform: Regular-No Restrictions Follow up Referrals: PCP Follow-up - 1 Week Surgical Continued Medications: Oxycodone-Acetaminophen (Percocet) 5-325 mg Tab 1 TAB PO Q6H PRN for PAIN, #12 TAB 0 Refills Discontinued Medications: Ciprofloxacin (Ciprofloxacin) 500 Mg Tab 500 MG PO BID for Infection, #14 TAB 0 Refills Codeine-Acetaminophen (Codeine-Acetaminophen) 30-300 mg Tab 1 TAB PO Q4H PRN for PAIN, #20 TAB 0 Refills Metronidazole (Flagyl) 500 Mg Tab 500 MG PO TID for Infection, #21 TAB 0 Refills Luis E Rizzo MD Nov 07, 2016 10:56
== END 2016-11-07 14:00 | disposition home or self-care (01) | DRG 854 ==
LOC: NEPC 04:34 → NEDA 07:13 → N07B 13:21
PROVIDERS: ADMIT Hospitalist; ATTEND Hospitalist
PROC: 0DQ84ZZ Repair Small Intestine, Percutaneous Endoscopic Approach (ICD-10-PCS; 2016-11-02)
PROC: 0DN84ZZ Release Small Intestine, Percutaneous Endoscopic Approach (ICD-10-PCS; principal; 2016-11-02 18:35)
DX: A41.9 Sepsis, unspecified organism (principal); K56.5 Intestinal adhesions [bands] with obstruction (postinfection); K55.8 Other vascular disorders of intestine; E87.1 Hypo-osmolality and hyponatremia; R65.20 Severe sepsis without septic shock; F17.210 Nicotine dependence, cigarettes, uncomplicated; E86.1 Hypovolemia
CPT/HCPCS: 71010; 74020; 74177; 80048; 80053; 83605; 83690; 83735; 84132; 85025; 85610; 85730; 87040; 93005; 94150; 96365; 96375; J0131; J2270; J2370; J2405; J2543; J3010; J3480; J7030; J7040; J7121; Q9967